=== PATIENT | male | born 1960 | race Caucasian/White ===

== ENCOUNTER → 2018-01-11 12:39 | Outpatient (CLI) | payer MEDICARE, SELFPAY ==
[2018-01-11 13:04] LABS: Hemoglobin 15.9 g/dL (13.5-17.5); Mean Corpuscular HGB Conc 33.2 % (30-36); Mean Corpuscular Hemoglobin 28.8 PG (26-34); Mean Corpuscular Volume 86.9 fL (80-100); Platelet Count 151 X10^3/uL (150-400); Red Blood Cell Count 5.52 X10^6/uL (4.5-5.9); Red Cell Distribution Width 15.2 % (11.6-14.8); White Blood Cell Count 7.2 X10^3/uL (4.5-11.0)
[2018-01-11 13:26] LABS: BUN Creatinine Ratio 11.1 (6-22); Blood Urea Nitrogen 10 mg/dL (9-20); Calcium 9.4 mg/dL (8.4-10.2); Carbon Dioxide 25 mmol/L (22-32); Chloride 106 mmol/L (98-107); Estimated Glomerular Filt Rate > 60.0 mL/min (>60); Glucose 99 mg/dL (70-100); HEMOLYSIS < 15 (0-50); Potassium 4.5 mmol/L (3.4-5.1); Sodium 142 mmol/L (137-145)
== END ==
PROVIDERS: Family Provider Family Medicine; PCP Family Medicine; Visit Provider Orthopaedic Surgery
DX: Z01.818 Encounter for other preprocedural examination (principal)
CPT/HCPCS: 36415; 80048; 85027

== ENCOUNTER 2018-02-08 06:19 | Inpatient (IN) | payer MEDICARE, SELFPAY ==
[2018-01-20 12:30] VITALS: BMI 49.8
[2018-02-08] VITALS (16 sets, daily range): BP systolic 90–146; BP diastolic 43–108; PULSE 92–123; RESP 10–21; TEMP 35.8–37.2; O2SAT 92–100; BMI 49.8
--- NOTE | 2018-02-08 07:30 | PM.PREOP ---
Pre-operative Note Interval Note Pre-op Check: History & Physical Reviewed by Physician and Exam Performed
--- NOTE | 2018-02-08 07:36 | P.OP_ITS ---
Operative Date/Time/Diagnoses Date of procedure: 02/08/18 Time of procedure: 12:11 Pre-op diagnosis: Lumbar stenosis Lumbar spondylolisthesis History of previous lumbar fusion Morbid obesity Post-op diagnosis: same Procedure & Clinicians Procedure: L2-3 anterior fusion with cage L2-3 posterior fusion with screws Iliac crest bone graft L2-3 laminectomy Use of microscope Placement of epidural catheter Same procedure as scheduled: Yes Indications: [age] year old male with intractable pain from stenosis. They had failed conservative management and requested operative intervention. Risks and benefits of surgery were discussed and appropriate consents were obtained. Surgeon: Og Ball Computer Systems Security Administrator: Tamara Escalante Anesthesia Type: General Operative Notes Findings: none Closure Type: primary Specimen(s): none sent Implants & Drains: Nuvasive Reline screws Nuvasive XLIF cage Applied: catheter and drain(s) Estimated Blood Loss (mL): 50 Procedure in detail: Patient was brought to the operating room and intubated on the table. Time-out was performed. They were then rolled over to the lateral decubitus position with the [id number]. The table was bent and they were taped down in the correct position. X-rays were taken to confirm a true AP and lateral. Preoperative antibiotics were given. The left flank was prepped and draped in standard sterile fashion. Using fluoroscopy, a 3 cm incision was made above the iliac crest. We bluntly dissected down with Metzenbaum scissors and split the 3 abdominal muscle layers. We dissected out the retroperitoneal space and using finger guidance, brought our 1st dilator down to the psoas muscle. Using neuromonitoring and fluoroscopy, we placed it through the psoas onto the L2-3 disc space in an anterior position and gradually pulled the dilator posteriorly along the disc space. We placed our guidewire and measured our depth for the retractor. We then dilated with the next 2 dilators and then placed our retractor over the dilators. Position was confirmed with fluoroscopy and the retractor was locked down to the bar. We opened up the retractor and checked with neuro monitoring. We then placed the nate and again checked with neuro monitoring. The retractor was opened further and the ALL retractor was placed. An annulotomy was performed. We then performed a complete diskectomy with ring curette, pituitary, box osteotome. A Aguero was advanced across the disc space under fluoroscopy to release the lateral annulus on the opposite side. We then used sequentially larger trials and confirmed under fluoroscopy. An XLIF cage was packed with Osteocell bone graft and impacted into the L2-3 disc space with fluoroscopy for the anterior fusion at this level. The wound was irrigated. The retractor was closed down. The nate was removed. We carefully removed the retractor with direct visualization to make sure there was no neurovascular or abdominal injury. Final x-rays were taken. The muscle fascia was closed, superficial tissue was closed. The skin was closed. Sterile dressing was placed. The patient was then rolled over on the well-padded prone position on the Antelmo table. Using fluoroscopy for localization, a 8 cm incision was made in the midline utilizing part of his previous incision. We dissected down the left sided paraspinal muscles to expose the lamina and out over the facet to the transverse process. We exposed the top of his previous instrumentation so we could see the L3 screw as well as the wali below this. We used a bur to clear out some of the bone mass around the wali so that we would be able to get a connector to it. We also used the bur to prep the L2 and L3 transverse processes. We then began placing our screw. A bur was used to decorticate the junction of the facet and transverse process. We then advanced a gear shifter down the pedicle using neuro monitoring. We checked with the ball probe to confirm a floor and 4 greene on the pedicle. We then tapped also with neuro monitoring. We checked again with the ball probe and then placed our left L2 Reline screw with neuro monitoring. We then placed byron connectors on his old wali and connected this to a wali up to his L2 screw. The set screws were then locked down and final xrays taken. We then brought in the microscope. A laminectomy was performed at L2-3 with a bur and Kerrison rongeurs. He had a very large facet cyst tracking across the midline. We were finally able to get this freed up and removed. We carefully depress the dura to reach to the opposite side and decompress the entire central canal. We cleared out the neural foramen. In the end the ball probe could be placed cephalad and caudally across to the opposite side in the foramen and everything was opened. The wound was copiously irrigated. A small stab incision was made over the PSIS and a Jamshidi needle was placed into the iliac crest and several mL of bone marrow was aspirated. This was mixed with our locally harvested bone graft as well as the remaining Osteocell and placed in the posterolateral gutter for fusion at L2-3. An epidural catheter was primed with 4mL of 0.5% bupivacaine, 100 mcg fentanyl, 4 mg Duramorph, 1 mg Stadol. The dura was depressed under the cephalad lamina with a ball probe and the epidural catheter was gently advanced 6 cm cephalad. The fascia was then closed. The epidural was then injected without resistance. The catheter was pulled and we closed more over the fascia. Vancomycin powder was placed in the wound. The superficial and skin were closed. Sterile dressing was placed. The patient was then rolled over, extubated, brought to the recovery room with no complications. Please note the patient was morbidly obese with a BMI of 50. This greatly increased the difficulty and amount of time required for this procedure. We used extremely long XLIF retractors which limited the mobility for his decompression. The posterior section was extremely deep through his adipose tissue which required larger exposures as well as was much more time consuming digging through the tissue and exposing and doing our work. The difficulty medical modifier will be included with this surgery. Complications: none Condition: stable Disposition: PACU Plan for aftercare: Inpatient. Up with physical therapy.
[2018-02-08] MEDS: LACTATED RINGERS 1,000 ML 42 ML IV ×3 (07:50→11:00)
--- NOTE | 2018-02-08 08:00 | DI.RAD.S_ITS ---
PROCEDURE: XR LUMBAR SPINE 2-3V INDICATIONS: L3-4 XLIF TECHNIQUE: 2 views of the lumbar spine were acquired. [facility]B 2 [facility] 3VW, 02/08/2017, 10:54. FINDINGS: Bones: Intraoperative AP and lateral images showing presence of discs spacers and posterior fixation in addition/revision to previous postsurgical changes. Soft tissues: Overlying bowel gas pattern is normal. No suspicious soft tissue calcifications. IMPRESSION: Intraoperative lumbar discectomy and fusion Dictated by: Jemal Wilkins M.D. on 02/09/2018 at 12:32 Approved by: Jemal Wilkins M.D. on 02/09/2018 at 12:36
[2018-02-08] MEDS: CLINDAMYCIN 900 MG/50 ML PIGGYBACK 50 MG IV ×2 (08:28→16:27)
--- NOTE | 2018-02-08 09:07 | SUR.OPER ---
Addendum entered by Jolene Walker R.N. 02/08/18 09:11: Prone on spine table, head in foam head support, padded chest and pelvic supports, gel pad at knees, lower legs supported by pillows; nipples, genitalia and toes free of pressure, arms secured on foam padded arm boards at <90 degrees abduction. Tape over blanket at thigh secured to table. Original Note: Right lateral on padded OR table. Head on pillow, gel axillary roll, pillowesx2 to support left arm. Legs flexed, pillows between legs, gel pad under down leg and ankle. Multiple passes of 3 inch cloth tape across shoulder, hip, upper and lower legs to secure patient on OR table.
[2018-02-08] MEDS: THROMBIN (BOVINE) 5,000 UNIT VIAL 5000 UNIT TOP (10:05)
[2018-02-08] MEDS: VANCOMYCIN 1,000 MG VIAL 1000 MG TOP (10:05)
[2018-02-08] MEDS: SODIUM CHLORIDE 0.9% 1,000 ML, GENTAMICIN 80 MG IRR ×2 (10:06→11:36)
[2018-02-08] MEDS: BUPIVACAINE 0.5% (PF) 4 ML, MORPHINE-PF 4 MG, BUTORPHANOL 1 MG, fentaNYL 100 MCG INJ (10:06)
[2018-02-08] MEDS: fentaNYL 100 MCG/2 ML INJ 50 MCG IV ×2 (12:48→12:58)
[2018-02-08] MEDS: LORazepam 2 MG/ML SYRINGE 1 MG IV (12:55)
[2018-02-08] MEDS: ACETAMINOPHEN IV 1,000 MG/100 ML VIAL 400 MG IV (13:07)
[2018-02-08] MEDS: HYDROMORPHONE 2 MG INJ 0.5 MG IV ×2 (13:10→13:22)
[2018-02-08] MEDS: hydrOXYzine 50 MG/ML INJ 25 MG IM (13:19)
[2018-02-08] MEDS: HYDROMORPHONE 1 MG INJ 0.5 MG IV ×3 (14:40→21:18)
[2018-02-08] MEDS: HYDROCODONE/ACET 5/325 TABLET 2 TAB PO ×3 (14:57→21:40)
[2018-02-08] MEDS: LACTATED RINGERS 1,000 ML 125 ML IV (15:00)
--- NOTE | 2018-02-08 15:46 | PC.NURSE ---
Post op: Late entry Arrived to room 218 approx 1430. Dressings to mid low back and L hip C/D/I. Hemovac and BLAYNE drains in place and WNL. Braga to gravity, urine clear yellow. SCD's to bilateral feet. IVF per orders, site in L AC WNL. C/O 04/11 back pain- medicated with 0.5 mg IV Dilaudid + 2 tabs Clarinda. Tolerating PO's without N/V. Denies paresthesias. SpO2 on RA 98% awake- cont pulse ox in place, personal CPAP at bedside and ready to use PRN. Oriented to room and call light, encouraged to make needs known. Alarm on.
[2018-02-08] MEDS: DOCUSATE 100 MG CAPSULE PO (21:14)
[2018-02-08] MEDS: METOPROLOL 50 MG TABLET PO (21:14)
[2018-02-08] MEDS: SENNOSIDES 8.6 MG TABLET 17.2 MG PO (21:14)
[2018-02-08] MEDS: GABAPENTIN 300 MG CAPSULE PO (21:14)
[2018-02-08] MEDS: hydrOXYzine pamoate 25 MG CAPSULE PO (21:15)
[2018-02-08] MEDS: HYDROCODONE/ACET 5/325 TABLET 1 TAB PO (21:35)
[2018-02-09] VITALS (7 sets, daily range): BP systolic 108–139; BP diastolic 72–84; PULSE 94–119; RESP 18–20; TEMP 36.3–37.4; O2SAT 96–99
[2018-02-09] MEDS: CELECOXIB 200 MG CAPSULE PO ×3 (00:46→21:09)
[2018-02-09] MEDS: HYDROMORPHONE 0.5 MG INJ IV ×7 (00:49→21:16)
[2018-02-09] MEDS: LACTATED RINGERS 1,000 ML 125 ML IV (00:51)
[2018-02-09] MEDS: HYDROCODONE/ACET 5/325 TABLET 2 TAB PO (01:26)
[2018-02-09] MEDS: hydrOXYzine pamoate 25 MG CAPSULE PO ×4 (01:27→21:17)
[2018-02-09] MEDS: CLINDAMYCIN 900 MG/50 ML PIGGYBACK 50 MG IV (01:27)
[2018-02-09 05:47] LABS: Hematocrit 39.7 % (41-53); Hemoglobin 13.4 g/dL (13.5-17.5)
--- NOTE | 2018-02-09 08:13 | PM.PNPO.1 ---
Subjective Date Patient Seen: 02/09/18 Time Patient Seen: 08:13 Interval history: Pain is about a 7/10 currently. All in the back. Legs are fine Exam Vital Signs (past 8 hours): - 02/09/18 04:30 02/09/18 07:59 Temperature 98.1 F 97.4 F L Pulse Rate 108 H 110 H Respiratory Rate 18 20 Blood Pressure 108/72 122/84 H Pulse Oximetry 96 99 Oxygen Delivery Method Room Air Oxygen Flow Rate 6 Const Orientation: alert and oriented x3 Back/Spine/Pelvis Other: Dressings clean dry intact. 5/5 motor both lower extremities Objective Labs Result Diagrams: 02/09/18 05:31 Labs: Laboratory Results - last 24 hr 02/09/18 05:31 Hgb 13.4 L Hct 39.7 L Assessment & Plan Post-op Postoperative Procedures Operation Date: 02/08/18 07:45 Actual Procedures Side Surgeon p L2-3 Ant/Post Fusion w/Bone Graft(XLIF) & Laminectomy; Partial Removal of Old Hardware Og Ball MD he is as expected after this big fusion and laminectomy. We will get him up and mobilize with physical therapy. Anticipate 2 more days in the hospital. He normally takes high-dose aspirin for his atrial fibrillation as he could not afford his prescribed routine medications. Evidently pharmacy did not feel comfortable with this dosing and we will put him on just a regular aspirin. Time Spent With Patient less than 15 minutes Quality VTE Deep Vein Thrombosis/Pulmonary Embolism Present on Admission: No
[2018-02-09] MEDS: METOPROLOL 50 MG TABLET PO ×2 (08:17→21:09)
[2018-02-09] MEDS: MULTIVITAMIN 1 TABLET 1 TAB PO (08:17)
[2018-02-09] MEDS: DOCUSATE 100 MG CAPSULE PO ×2 (08:18→21:09)
[2018-02-09] MEDS: OXYCODONE IR 5 MG TABLET 10 MG PO ×3 (09:24→15:49)
[2018-02-09] MEDS: ASPIRIN EC 325 MG TABLET PO ×2 (09:25→21:09)
--- NOTE | 2018-02-09 10:50 | PT.IIE ---
Current Diagnoses Spondylolisthesis, lumbar region (02/08/18) Spinal stenosis, lumbar region with neurogenic claudication (02/08/18) Arthrodesis status (02/08/18) Surgery Performed Operation Date: 02/08/18 07:45 Actual Procedures p L2-3 Ant/Post Fusion w/Bone Graft(XLIF) & Laminectomy; Partial Removal of Old Hardware - Og Ball MD Surgical History (Last Updated 01/20/18 @ 13:22 by Cynthia Liriano RN) History of back surgery (Acute) History of bilateral carpal tunnel release (Acute) Hx of hand surgery (Acute) Hx of repair of right rotator cuff (Acute) Status post rotator cuff repair Medical History (Last Updated 01/20/18 @ 13:22 by Cynthia Liriano RN) Anxiety (Acute) Arthritis (Acute) Asthma (Acute) COPD (chronic obstructive pulmonary disease) (Acute) Gout (Acute) HTN (hypertension) (Acute) Kidney stones (Acute) Numbness and tingling of both legs (Acute) Sepsis (Acute) Sleep apnea with use of continuous positive airway pressure (CPAP) (Acute) Physical Therapy Inpatient Evaluation/Re-Eval M1 PT/OT-IP Prior Functional Status Start: 02/08/18 15:03 Freq: NEEDED Status: Active Protocol: Document 02/09/18 10:50 MDD (Rec: 02/09/18 12:16 MDD [id number]) Medical Review Prior Functional Status Medical History Reviewed Yes Mobility and Gait modified independent with gait using walking sticks. independent with all ADL's. 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 Social History Household Members family none Living Arrangements House Number of Floors (Floors) One Floor Number of Stairs To Enter/Railing? 6 steps to enter, railing on R going up. Also has access via a wheelchair ramp to a separate entrance. Home Environment Standard Height Toilet Walk in Shower Tub/Shower Ramp Home Equipment Four Wheel Walker Shower Seat without Backrest Employment Status Retired Additional Social History Comment Charles works as a CHEMISTRY TECHNICIAN, will be available to assist in the home. He plans on staying with sister and brother in-law initially upon discharge. M2 PT-IP Current Condition Start: 02/08/18 15:03 Freq: NEEDED Status: Active Protocol: Document 02/09/18 10:50 MDD (Rec: 02/09/18 12:16 MDD [id number]) Physical Therapy Current Condition Current Condition Evaluation Date 02/09/18 Treatment Diagnosis impaired mobility, impaired gait, status post L2-3 anterior/posterior fusio Onset Date 02/08/18 Precautions Lumbar Precautions Log Roll No Twisting Limit Bending Lifting Restriction of 10 lbs Gait Belt above Incisional Area Weight Bearing Status Weight Bearing Status Full Weight Bearing M3 PT-IP Subjective Start: 02/08/18 15:03 Freq: NEEDED Status: Active Protocol: Document 02/09/18 10:50 MDD (Rec: 02/09/18 12:16 MDD [id number]) Subjective Physical Therapy Visit Type Type Initial Evaluation Visit Start Time 10:00 Visit Stop Time 10:50 Total Visit Minutes 50 Number of IP/MOSAIC TECHNICIAN Visits 0 Physical Therapy Visit Comments Patient Comments Pt reporting improved pain after mobility. Motivated to participate with PT and get out of bed. Therapy Pain Assessment Pain When Pain Assessed At Rest Pain Present Pain Present Pain Reported Location Lower Back Intensity 7 Scale Used Numeric (1 - 10) Description Aching Pain Behaviors Guarding Pain Management Techniques Timing of Activity with Medications M4 PT-IP Mobility and Gait Start: 02/08/18 15:03 Freq: NEEDED Status: Active Protocol: Document 02/09/18 10:50 MDD (Rec: 02/09/18 12:16 MDD [id number]) PT-Bed Mobility Assessment Rolling Type of Rolling Log Rolling Roll to Left Level of Assist Independent Supine to Sit Supine to Sit Minimal Assistance Scooting Scooting to Edge of Bed Independent PT-Transfer Assessment Sit to and From Stand Sit to and from Stand Contact Guard Assistance Equipment Transfer Assistive Device Gait Belt Front Wheeled Walker Orthotic/Prosthetic Devices or Brace: No Transfers Transfer Destination Chair Toilet Transfer Ability Level of Assist Contact Guard Assistance Gait Assessment Gait Gait Assistance Required: Contact Guard Assist Distance (Feet) (feet) 35 Able to Maintain Weight Bearing Status Yes During Gait Assistive Devices Assistive Device Gait Belt Front Wheeled Walker Orthotic/Prosthetic Devices or Brace: No Gait Deviations General Gait Pattern Antalgic Wide Based Gait Comments Gait Comments Pt ambulates slowly with slight forward trunk lean PT-Balance Assessment Sitting Balance and Reactions Static Sitting Balance Ability Normal Dynamic Sitting Balance Ability Good Standing Balance and Reactions Static Standing Balance Ability Normal Balance Tests Romberg 30 seconds, nml M5 PT-IP Objective Assessments Start: 02/08/18 15:03 Freq: NEEDED Status: Active Protocol: Document 02/09/18 10:50 MDD (Rec: 02/09/18 12:16 MDD [id number]) Orientation Orientation/Cognition Level of Alertness Alert Orientation Name Day of Week Language Function Ability No Deficits Noted Safety Awareness Understands Safety Issues Memory Description No Deficits Noted Gross Range of Motion Upper Extremity ROM Assessment Within Functional Limits Lower Extremity ROM Assessment Within Functional Limits Strength Lower Extremity Strength Assessment Within Functional Limits Coordination Assessment Gross Coordination Gross Coordination WNL Sensation Assessment Sensation Gross Sensation WNL Light Touch Intact M6 PT-IP Treatment Start: 02/08/18 15:03 Freq: NEEDED Status: Active Protocol: Document 02/09/18 10:50 MDD (Rec: 02/09/18 12:16 MDD [id number]) Physical Therapy Treatment Exercises Exercises Ankle Pumps Seated Knee Flexion/Extension Education Education Provided Precautions Post-Op Packet Safety Other Treatments Other Treatment Performed additional exercise, seated marching M7 PT-IP Assessment and Plan Start: 02/08/18 15:03 Freq: NEEDED Status: Active Protocol: Document 02/09/18 10:50 MDD (Rec: 02/09/18 12:16 MDD [id number]) PT Summary Assessment and Plan Potential Rehabilitation Potential Excellent Status of Condition at Evaluation Stable Summary Impairments Pain ROM Bed Mobility Gait Progress Towards Goals Progressing Toward Goals Goals Bed Mobility Goal Independent Transfer Goal Independent Gait Goal Standby Assistance Front Wheel Walker Gait Distance Minimum of 50 feet with front wheeled walker Other Goals Ability to ascend/descend 6 steps with R hand railing going up. Days to Meet Goals 3 Frequency of Treatment Frequency Of Treatment Twice a Day Treatment Plan Physical Therapy Treatment Plan Bed Mobility Training Transfer Training Gait Training Therapeutic Exercise Post Op Education Discharge Planning Recommendations To Nursing Amount of Assist Needed 1 Person Assist Discharge Recommendations PT Discharge Recommendations Home with Assistance
--- NOTE | 2018-02-09 13:22 | CM.DANOTE ---
Patient is a 57 year old male who was admitted on 02/08/18 for XLIF. Pt has MCR for insurance and his PCP is Dr. Cui. EMR was reviewed. Per MD, likely another 2 days and mobilize with PT. Per PT, currently recommending likely safe d/c to sister's house for additional assist and outpt PT. 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 Pt drives and denies any hx of HH. Sister states that they plan to have the pt stay with them at discharge for assist for as long as needed. They do not anticipate any SW needs. Plan: SW to follow for further PT towards likely d/c to sister's house when medically stable. COLLEEN Ambriz Discharge Planning/Care Management CM Discharge Assessment Start: 02/09/18 13:20 Freq: Status: Active Protocol: Document 02/09/18 13:20 BF (Rec: 02/09/18 13:22 BF [id number]) Discharge Planning Assessment Assigned Instrument Operator OFFICE MACHINE INSTALLER History Provided By Family Member Significant Other Has Patient been admitted in last 30 No days? Is this patient on Medicare? Yes Is the admit diagnosis the same? Yes Comment XLIF Prior Living Arrangements House Household Members family none Type of transporation used prior to Drives own vehicle admit Independent with ADL's Yes Is patient alert and oriented? Yes Needs Assistance With Managing Medications Caregiver for Another No DME Already Rented / Owned Oxygen Referrals Initiated None needed Comment Patient has local supportive sister and sig other who can assist at d/c Discharge Plan Home Transportation Arrangement Sister can provide transport at d/c Review Status In Process Next Review Type Discharge Review
--- NOTE | 2018-02-09 15:20 | PT.IPTN ---
Current Diagnoses Spondylolisthesis, lumbar region (02/08/18) Spinal stenosis, lumbar region with neurogenic claudication (02/08/18) Arthrodesis status (02/08/18) Surgery Performed Operation Date: 02/08/18 07:45 Actual Procedures p L2-3 Ant/Post Fusion w/Bone Graft(XLIF) & Laminectomy; Partial Removal of Old Hardware - Og Ball MD Physical Therapy Treatment Note M2 PT-IP Current Condition Start: 02/08/18 15:03 Freq: NEEDED Status: Active Protocol: Document 02/09/18 10:50 MDD (Rec: 02/09/18 12:16 MDD [id number]) Physical Therapy Current Condition Current Condition Evaluation Date 02/09/18 Treatment Diagnosis impaired mobility, impaired gait, status post L2-3 anterior/posterior fusio Onset Date 02/08/18 Precautions Lumbar Precautions Log Roll No Twisting Limit Bending Lifting Restriction of 10 lbs Gait Belt above Incisional Area Weight Bearing Status Weight Bearing Status Full Weight Bearing M3 PT-IP Subjective Start: 02/08/18 15:03 Freq: NEEDED Status: Active Protocol: Document 02/09/18 16:47 MDD (Rec: 02/09/18 16:58 MDD [id number]) Subjective Physical Therapy Visit Type Type Treatment Note Visit Start Time 14:53 Visit Stop Time 15:20 Total Visit Minutes 27 Number of SANITARY LANDFILL OPERATOR Visits 0 Physical Therapy Visit Comments Patient Comments Pt reports increased pain after PT session this am. Short Term Goals improve mobility to remove catheter Therapy Pain Assessment Pain When Pain Assessed At Rest Pain Present Pain Present Pain Reported Location Lower Back Intensity 7 Scale Used Numeric (1 - 10) Description Aching Pain Management Techniques Apply Cold M4 PT-IP Mobility and Gait Start: 02/08/18 15:03 Freq: NEEDED Status: Active Protocol: Document 02/09/18 16:47 MDD (Rec: 02/09/18 16:58 MDD [id number]) PT-Bed Mobility Assessment Rolling Type of Rolling Log Rolling Roll to Left Level of Assist Standby Assistance Supine to Sit Supine to Sit Standby Assistance Sit to Supine Sit to Supine Standby Assistance Scooting Scooting to Edge of Bed Independent PT-Transfer Assessment Sit to and From Stand Sit to and from Stand Standby Assistance Contact Guard Assistance Equipment Transfer Assistive Device Front Wheeled Walker Transfers Transfer Destination Bed Chair Transfer Ability Level of Assist Standby Assistance Gait Assessment Gait Gait Assistance Required: Standby Assistance Distance (Feet) (feet) 150 Able to Maintain Weight Bearing Status Yes During Gait Assistive Devices Assistive Device Gait Belt Front Wheeled Walker Orthotic/Prosthetic Devices or Brace: No Gait Deviations General Gait Pattern Antalgic Comments Gait Comments slow and guarded M5 PT-IP Objective Assessments Start: 02/08/18 15:03 Freq: NEEDED Status: Active Protocol: Document 02/09/18 16:47 MDD (Rec: 02/09/18 16:58 [facility] [id number]) Orientation Orientation/Cognition Level of Alertness Alert M6 PT-IP Treatment Start: 02/08/18 15:03 Freq: NEEDED Status: Active Protocol: Document 02/09/18 16:47 MDD (Rec: 02/09/18 16:58 MDD [id number]) Physical Therapy Treatment Other Treatments Other Treatment Performed Practice with bed mobility, sit <> supine with head of bed elevated to 30 degrees, use of bed rail as needed. Provided education on transfer safety with sequencing and using armrests of chair rather than walker. M7 PT-IP Assessment and Plan Start: 02/08/18 15:03 Freq: NEEDED Status: Active Protocol: Document 02/09/18 16:47 MDD (Rec: 02/09/18 16:58 MDD [id number]) PT Summary Assessment and Plan Potential Rehabilitation Potential Excellent Status of Condition at Evaluation Stable Summary Impairments Pain ROM Bed Mobility Transfers Gait Activity Tolerance Progress Towards Goals Progressing Toward Goals Assessment Summary Pt demo's improved transfers with standby assist only this afternoon. Improved endurance and distance with gait up to 150 feet. Goals Bed Mobility Goal Independent Transfer Goal Independent Gait Goal Standby Assistance Gait Distance Minimum of 50 feet with front wheeled walker Other Goals Ability to ascend/descend 6 steps with R hand railing going up. Days to Meet Goals 3 Frequency of Treatment Frequency Of Treatment Twice a Day Treatment Plan Physical Therapy Treatment Plan Bed Mobility Training Transfer Training Gait Training Therapeutic Exercise Post Op Education Discharge Planning Recommendations To Nursing Amount of Assist Needed 1 Person Assist Discharge Recommendations PT Discharge Recommendations Home with Assistance
--- NOTE | 2018-02-09 17:10 | OT.IP.TRT ---
Current Diagnoses Spondylolisthesis, lumbar region (02/08/18) Spinal stenosis, lumbar region with neurogenic claudication (02/08/18) Arthrodesis status (02/08/18) Surgery Performed Operation Date: 02/08/18 07:45 Actual Procedures p L2-3 Ant/Post Fusion w/Bone Graft(XLIF) & Laminectomy; Partial Removal of Old Hardware - Og Ball MD Occupational Therapy Treatment Note M3 OT- IP Subjective and Pain Start: 02/09/18 17:08 Freq: Status: Active Protocol: Document 02/09/18 17:09 GERI (Rec: 02/09/18 17:10 [email or web address] [id number]) OT- Subjective Occupational Therapy Visit Type Type Administrative Note Visit Start Time 15:00 Notes OT referral received. Will initiate evaluation in AM.
[2018-02-09] MEDS: OXYCODONE IR 5 MG TABLET PO (19:09)
[2018-02-09] MEDS: SENNOSIDES 8.6 MG TABLET 17.2 MG PO (21:09)
[2018-02-09] MEDS: GABAPENTIN 300 MG CAPSULE PO (21:09)
[2018-02-10] MEDS: OXYCODONE IR 5 MG TABLET 10 MG PO ×7 (00:12→20:49)
[2018-02-10 00:17] VITALS: BP 95/58; PULSE 106; RESP 16; TEMP 36.7; O2SAT 96
--- NOTE | 2018-02-10 01:34 | PC.NURSE ---
Addendum entered by Reina Hatch R.N. 02/10/18 06:21: Catheter d'cd per protocol. Instructed in sx/prevention of UTI. Up to bathroom attempting to have BM Original Note: Addendum entered by Reina Hatch R.N. 02/10/18 06:11: Medicated with Oxycodone for complaint of 6/10 back pain. Original Note: Addendum entered by Reina Hatch R.N. 02/10/18 05:11: Still complaining of stomach cramping. Was given Maalox at 0431 and is waiting for that to work. States back pain is still 6/10 so medicated with Vistaril. Original Note: Addendum entered by Reina Hatch R.N. 02/10/18 03:14: Complains of pain in back/legs and stomach (gas). Assisted out of bed with 2 assist and then ambulated in pascual with walker and SBA, then medicated with Oxycodone and now sitting up in chair. Original Note: Patient is alert and oriented. Breath sounds diminished but CTA with RA sat of 96%; is using home CPAP for sleep. HRR but tachy at 100 bpm. Denies nausea. BT hypoactive but is passing flatus. Indwelling catheter is patent and plan is to remove in the a.m.; patient is agreeable. Hemovac is intact and compressed. Dressings to back and left hip are CDI. Also has a BLAYNE drain. Needs some assist to reposition q2h but does assist. IV site accidentally pulled out per patient; not restarted at this time per patient request and will try to manage pain with po pain meds but is aware if he needs IV pain meds that IV will need to be restarted. Complains of 6/10 back pain so medicated with Oxycodone. Refuses to wear SCD's. Fall risk score is moderate; bed alarm on for night safety.
[2018-02-10] MEDS: MAG HYDROX/ALUM/SIMETH 30 ML UDC PO ×2 (04:31→13:07)
[2018-02-10] MEDS: hydrOXYzine pamoate 25 MG CAPSULE PO ×2 (05:10→17:18)
[2018-02-10 06:15] VITALS: BP 123/77; PULSE 102; RESP 16; TEMP 36.7; O2SAT 95
[2018-02-10 08:00] VITALS: BP 143/85; PULSE 94; RESP 17; TEMP 36.9; O2SAT 99
[2018-02-10] MEDS: MAGNESIUM HYDROXIDE 30 ML UDC PO (09:03)
[2018-02-10] MEDS: CELECOXIB 200 MG CAPSULE PO ×2 (09:04→20:49)
[2018-02-10] MEDS: ASPIRIN EC 325 MG TABLET PO ×2 (09:04→20:49)
[2018-02-10] MEDS: DOCUSATE 100 MG CAPSULE PO ×2 (09:04→20:49)
[2018-02-10] MEDS: METOPROLOL 50 MG TABLET PO ×2 (09:04→20:49)
[2018-02-10] MEDS: MULTIVITAMIN 1 TABLET 1 TAB PO (09:04)
--- NOTE | 2018-02-10 09:39 | PM.PNPO.1 ---
Subjective Date Patient Seen: 02/10/18 Time Patient Seen: 09:31 Interval history: Patient seen bedside s/p L2-3 anterior and posterior fusion with bone graft (XLIF) and laminectomy with partial removal of old hardware. Patient is postop day 2. He is doing well, pain is controlled with medication. He does state pain with the movement but would like to go home tomorrow. He denies any numbness tingling or calf pain. He does complain of bloating and stomach cramps. He has not had a bowel movement post-op. Exam Vital Signs (past 8 hours): - 02/10/18 06:15 02/10/18 08:00 Temperature 98.0 F 98.4 F Pulse Rate 102 H 94 H Respiratory Rate 16 17 Blood Pressure 123/77 H 143/85 H Pulse Oximetry 95 99 Oxygen Delivery Method Room Air,CPAP Oxygen Flow Rate 0 Narrative Exam Narrative: Patient is a well-developed well-nourished in no acute distress. Patient is oriented x3. Examination of the spleen dressing is clean dry and intact with minimal drainage in the Hemovac drain. He has palpable pulses in all extremities calves are soft and compressible, and sensation is intact bilaterally in lower extremities. He has full range of motion at the knee and ankle. Objective Labs Result Diagrams: 02/09/18 05:31 Assessment & Plan Post-op (1) Spondylisthesis: Current Visit: Yes Status: Acute Postoperative Procedures Operation Date: 02/08/18 07:45 Actual Procedures Side Surgeon p L2-3 Ant/Post Fusion w/Bone Graft(XLIF) & Laminectomy; Partial Removal of Old Hardware Og Ball MD Patient seen bedside status post the above procedure. He is postop day 2. Continue with physical therapy and pain control. Continue VTE prophylaxis. Possible discharge home tomorrow. Will add Gas-X to help with bloating as well as recommend laxatives to induce a BM. All questions answered at the time of exam. Time Spent With Patient less than 15 minutes Quality VTE Deep Vein Thrombosis/Pulmonary Embolism Present on Admission: No
--- NOTE | 2018-02-10 10:51 | PT.IPTN ---
Current Diagnoses Spondylolisthesis, site unspecified (02/08/18) Spondylolisthesis, lumbar region (02/08/18) Spinal stenosis, lumbar region with neurogenic claudication (02/08/18) Arthrodesis status (02/08/18) Surgery Performed Operation Date: 02/08/18 07:45 Actual Procedures p L2-3 Ant/Post Fusion w/Bone Graft(XLIF) & Laminectomy; Partial Removal of Old Hardware - Og Ball MD Physical Therapy Treatment Note M2 PT-IP Current Condition Start: 02/08/18 15:03 Freq: NEEDED Status: Active Protocol: Document 02/09/18 10:50 MDD (Rec: 02/09/18 12:16 MDD [id number]) Physical Therapy Current Condition Current Condition Evaluation Date 02/09/18 Treatment Diagnosis impaired mobility, impaired gait, status post L2-3 anterior/posterior fusio Onset Date 02/08/18 Precautions Lumbar Precautions Log Roll No Twisting Limit Bending Lifting Restriction of 10 lbs Gait Belt above Incisional Area Weight Bearing Status Weight Bearing Status Full Weight Bearing M3 PT-IP Subjective Start: 02/08/18 15:03 Freq: NEEDED Status: Active Protocol: Document 02/10/18 12:27 MDD (Rec: 02/10/18 12:37 MDD [email or web address]) Subjective Physical Therapy Visit Type Type Treatment Note Visit Start Time 10:24 Visit Stop Time 10:51 Total Visit Minutes 27 Number of PRODUCT DEVELOPMENT ACTUARY Visits 0 Physical Therapy Visit Comments Patient Comments Feeling a bit better this morning, reports he was up moving around at 3 am this morning. Short Term Goals stair training Therapy Pain Assessment Pain When Pain Assessed At Rest Pain Present Pain Present Pain Reported Location Lower Back Intensity 6 Scale Used Numeric (1 - 10) Pain Management Techniques Timing of Activity with Medications M4 PT-IP Mobility and Gait Start: 02/08/18 15:03 Freq: NEEDED Status: Active Protocol: Document 02/10/18 12:27 MDD (Rec: 02/10/18 12:37 MDD [id number]) PT-Bed Mobility Assessment Scooting Scooting to Edge of Bed Independent PT-Transfer Assessment Sit to and From Stand Sit to and from Stand Standby Assistance Contact Guard Assistance Equipment Transfer Assistive Device Front Wheeled Walker Orthotic/Prosthetic Devices or Brace: No Transfers Transfer Destination Chair Wheelchair Transfer Ability Level of Assist Standby Assistance Comments Mobility Comments Pt requires some cuing for slower descent for transfers, continues to have some difficulty with sit to stand from lower surfaces. Gait Assessment Gait Gait Assistance Required: Standby Assistance Distance (Feet) (feet) 75 Able to Maintain Weight Bearing Status Yes During Gait Assistive Devices Assistive Device Gait Belt Front Wheeled Walker Gait Deviations General Gait Pattern Within Normal Limits Antalgic Comments Gait Comments reliance on upper extremities, requires cues for upright posture and placing less pressure on the walker Stair Climbing Assessment Evaluation Level of Assist On Stairs Contact Guard Assistance Devices Stair Climbing Assistive Devices Left Railing Right Railing Technique/Endurance Stair Climbing Direction Ascend and Descend Stair Climbing Technique Step to Step Number of Steps Climbed 3 Query Text: Stair Climbing Set # Repetitions (reps) 2 Comments Stair Climbing Comments Requires use of B railings today PT-Balance Assessment Sitting Balance and Reactions Static Sitting Balance Ability Normal M5 PT-IP Objective Assessments Start: 02/08/18 15:03 Freq: NEEDED Status: Active Protocol: Document 02/09/18 16:47 MDD (Rec: 02/09/18 16:58 MDD [id number]) Orientation Orientation/Cognition Level of Alertness Alert M6 PT-IP Treatment Start: 02/08/18 15:03 Freq: NEEDED Status: Active Protocol: Document 02/10/18 12:27 MDD (Rec: 02/10/18 12:37 MDD [email or web address]) Physical Therapy Treatment Other Treatments Other Treatment Performed standing balance exercises including balance without UE support x 30 seconds, small weight shifts without UE support x 20, marching in place x 20 (required handhold assist for safety). M7 PT-IP Assessment and Plan Start: 02/08/18 15:03 Freq: NEEDED Status: Active Protocol: Document 02/10/18 12:27 MDD (Rec: 02/10/18 12:37 MDD [id number]) PT Summary Assessment and Plan Potential Rehabilitation Potential Excellent Status of Condition at Evaluation Stable Summary Impairments Pain ROM Bed Mobility Transfers Gait Activity Tolerance Progress Towards Goals Progressing Toward Goals Assessment Summary Pt progressing well, demo's ability to safely ascend/ descend stairs using B handrails. Improved ease with transfers, requires some cueing for safe sequencing. Goals Bed Mobility Goal Independent Transfer Goal Independent Gait Goal Standby Assistance Gait Distance Minimum of 50 feet with front wheeled walker Other Goals Ability to ascend/descend 6 steps with R hand railing going up. Days to Meet Goals 2 Frequency of Treatment Frequency Of Treatment Twice a Day Treatment Plan Physical Therapy Treatment Plan Bed Mobility Training Transfer Training Gait Training Therapeutic Exercise Post Op Education Discharge Planning Other Recommendations and Next Treatment continue with stair training, Focus trial one walking stick with R handrail use on stairs, continue with bed mobility training Recommendations To Nursing Amount of Assist Needed 1 Person Assist Discharge Recommendations PT Discharge Recommendations Home with Assistance Equipment Needed for Home Before may require bariatric front Discharge wheeled walker - sister has multiple AD's but may not have front wheeled walker
--- NOTE | 2018-02-10 13:00 | OT.IP.EVAL ---
Current Diagnoses Spondylolisthesis, site unspecified (02/08/18) Spondylolisthesis, lumbar region (02/08/18) Spinal stenosis, lumbar region with neurogenic claudication (02/08/18) Arthrodesis status (02/08/18) Surgery Performed Operation Date: 02/08/18 07:45 Actual Procedures p L2-3 Ant/Post Fusion w/Bone Graft(XLIF) & Laminectomy; Partial Removal of Old Hardware - Og Ball MD Past Medical History (Last Updated 01/20/18 @ 13:22 by Cynthia Liriano RN) Anxiety (Acute) Arthritis (Acute) Asthma (Acute) COPD (chronic obstructive pulmonary disease) (Acute) Gout (Acute) HTN (hypertension) (Acute) Kidney stones (Acute) Numbness and tingling of both legs (Acute) Sepsis (Acute) Sleep apnea with use of continuous positive airway pressure (CPAP) (Acute) Surgical History (Last Updated 01/20/18 @ 13:22 by Cynthia Liriano RN) History of back surgery (Acute) History of bilateral carpal tunnel release (Acute) Hx of hand surgery (Acute) Hx of repair of right rotator cuff (Acute) Status post rotator cuff repair Occupational Therapy Inpatient Evaluation/Re-Eval M1 PT/OT-IP Prior Functional Status Start: 02/08/18 15:03 Freq: NEEDED Status: Active Protocol: Document 02/10/18 12:49 ADH (Rec: 02/10/18 13:00 ADH [id number]) Medical Review Prior Functional Status Medical History Reviewed Yes Mobility and Gait modified independent with gait using walking sticks. independent with all ADL's. 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 Social History Household Members family none Living Arrangements House Number of Stairs To Enter/Railing? ramp to access front of [employer]. pt lives alone but sister and b-i-l live next door on property. Home Environment High Toilet Walk in Shower Home Equipment Shower Seat with Backrest Long Handled Shoe Horn Grab Bars Near Toilet Grab Bars In Shower Employment Status Retired M2 OT-IP Current Condition Start: 02/09/18 17:08 Freq: Status: Active Protocol: Document 02/10/18 12:49 ADH (Rec: 02/10/18 13:00 ADH [id number]) Occupational Therapy Current Condition Current Condition Evaluation Date 02/10/18 Treatment Diagnosis L2-L3 ant/post lami with fusion and bone graft Diagnosis Onset Date 02/08/18 Post Operative Precautions Lumbar Precautions Log Roll No Twisting Limit Bending Lifting Restriction of 10 lbs Gait Belt above Incisional Area Weight Bearing Status Weight Bearing Status Full Weight Bearing M3 OT- IP Subjective and Pain Start: 02/09/18 17:08 Freq: Status: Active Protocol: Document 02/10/18 12:49 ADH (Rec: 02/10/18 13:00 ADH [id number]) OT- Subjective Occupational Therapy Visit Type Type Initial Evaluation Visit Start Time 11:31 Visit Stop Time 12:02 Total Visit Minutes 31 OT Pain Assessment Pain When Pain Assessed During Mobility Pain Present Pain Present Denied Pain M4 OT- IP ADL's Start: 02/09/18 17:08 Freq: Status: Active Protocol: Document 02/10/18 12:49 ADH (Rec: 02/10/18 13:00 ADH [id number]) OT ADL-Dressing General Eval Lower Body Dressing Ability Standby Assistance Areas Needing Assistance Retrieving/Set-up of Clothing Assistive Devices Dressing Assistive Devices Long Handled Shoe Horn Slot Shift Supervisor Sock Aid Comments OT Dressing Comments Pt able to demo donning/ doffing shorts, socks, and slippers with long handled equipment after instruction. OT ADL-Toileting Comments OT Toileting Comments Pt able to transfer on/off toilet with arm rests with SBA only. M6 OT- IP Functional Cognition Start: 02/09/18 17:08 Freq: Status: Active Protocol: Document 02/10/18 12:49 ADH (Rec: 02/10/18 13:00 ADH [id number]) Cognitive Factors Limiting Selfcare Function Cognitive Ability Level of Alertness Alert Patient Orientation Name Birthday Month Date Year Day of Week Place Situation Attention Span Ability Capable of Focused Attention Capable of Sustained Attention Ability to Follow Commands Able to Follow Multi-Step Commands Memory Description No Deficits Noted Safety Awareness No Deficits Noted Problem Solving Ability No deficits Noted Executive Function Ability No Deficits Noted Abstract Thinking Ability No Deficits Noted OT- Vision and Hearing OT- Hearing Assessment OT- Hearing Assessment WFL OT- Vision Assessment Visual Acuity WFL M7 OT- IP Mobility and Balance Start: 02/09/18 17:08 Freq: Status: Active Protocol: Document 02/10/18 12:49 ADH (Rec: 02/10/18 13:00 ADH [id number]) OT-Transfer Assessment Sit to and From Stand Sit to and from Stand Contact Guard Assistance Transfers Transfer Ability Contact Guard Assistance Technique Transfer Destination Bedside Commode Chair Transfer Technique Stand Step Pivot Devices Transfer Assistive Devices Gait Belt Front Wheeled Walker OT- Gait Assessment Gait Distance (Feet) (feet) 22 M8 OT- IP Objective Assessments Start: 02/09/18 17:08 Freq: Status: Active Protocol: Document 02/10/18 12:49 ADH (Rec: 02/10/18 13:00 ADH [id number]) OT Gross Range of Motion Upper Extremity Range of Motion Assessment Within Functional Limits OT Strength Upper Extremity Strength Assessment Within Functional Limits OT- Coordination Assessment Upper Extremity Finger Tapping Test Right UE Impaired M9 OT- IP Assessment and Plan Start: 02/09/18 17:08 Freq: Status: Active Protocol: Document 02/10/18 12:49 ADH (Rec: 02/10/18 13:00 ADH [id number]) OT Summary Assessment and Plan Potential Rehabilitation Potential Excellent Analytic Complexity at Evaluation Low Summary OT Impairments Pain Progress Towards Goals Progressing Toward Goals Assessment Summary Pt nearing baseline bADLs per report, with continued difficulty in transfers only. Pt with large body size impacting ability to transfer in/out of bed and up from soft /low surface while maintaining back precautions. Pt safe to d/c home once medically stable and cleared bed mobility from PT. No further OT needs noted at this time. Discharge Recommendations OT Discharge Recommendations Home with Assistance
[2018-02-10 13:45] VITALS: BP 120/69; PULSE 98; RESP 16
--- NOTE | 2018-02-10 14:50 | PT.IPTN ---
Current Diagnoses Spondylolisthesis, site unspecified (02/08/18) Spondylolisthesis, lumbar region (02/08/18) Spinal stenosis, lumbar region with neurogenic claudication (02/08/18) Arthrodesis status (02/08/18) Surgery Performed Operation Date: 02/08/18 07:45 Actual Procedures p L2-3 Ant/Post Fusion w/Bone Graft(XLIF) & Laminectomy; Partial Removal of Old Hardware - Og Ball MD Physical Therapy Treatment Note M2 PT-IP Current Condition Start: 02/08/18 15:03 Freq: NEEDED Status: Active Protocol: Document 02/09/18 10:50 MDD (Rec: 02/09/18 12:16 MDD [id number]) Physical Therapy Current Condition Current Condition Evaluation Date 02/09/18 Treatment Diagnosis impaired mobility, impaired gait, status post L2-3 anterior/posterior fusio Onset Date 02/08/18 Precautions Lumbar Precautions Log Roll No Twisting Limit Bending Lifting Restriction of 10 lbs Gait Belt above Incisional Area Weight Bearing Status Weight Bearing Status Full Weight Bearing M3 PT-IP Subjective Start: 02/08/18 15:03 Freq: NEEDED Status: Active Protocol: Document 02/10/18 14:50 GGD (Rec: 02/10/18 15:33 GGD [id number]) Subjective Physical Therapy Visit Type Type Treatment Note Visit Start Time 14:40 Visit Stop Time 14:50 Total Visit Minutes 30 Number of PASSENGER SERVICE REPRESENTATIVE Visits 1 Physical Therapy Visit Comments Patient Comments Pt states he doing a little better. Therapy Pain Assessment Pain When Pain Assessed At Rest Pain Present Pain Present Pain Reported Location Lower Back Intensity 6 Scale Used Numeric (1 - 10) Pain Management Techniques Timing of Activity with Medications M4 PT-IP Mobility and Gait Start: 02/08/18 15:03 Freq: NEEDED Status: Active Protocol: Document 02/10/18 14:50 GGD (Rec: 02/10/18 15:33 GGD [id number]) PT-Bed Mobility Assessment Rolling Type of Rolling Log Rolling Roll to Left Level of Assist Standby Assistance Supine to Sit Supine to Sit Standby Assistance Sit to Supine Sit to Supine Standby Assistance Scooting Scooting to Edge of Bed Independent PT-Transfer Assessment Sit to and From Stand Sit to and from Stand Standby Assistance Contact Guard Assistance Equipment Transfer Assistive Device Gait Belt Front Wheeled Walker Transfers Transfer Destination Bed Transfer Ability Level of Assist Standby Assistance Gait Assessment Gait Gait Assistance Required: Standby Assistance Distance (Feet) (feet) 250 Able to Maintain Weight Bearing Status Yes During Gait Assistive Devices Assistive Device Gait Belt Front Wheeled Walker Gait Deviations General Gait Pattern Within Normal Limits Antalgic Comments Gait Comments Pt ambulates with heavy UE support on FWW. Stair Climbing Assessment Evaluation Level of Assist On Stairs Contact Guard Assistance Devices Stair Climbing Assistive Devices Right Railing Technique/Endurance Stair Climbing Direction Ascend and Descend Stair Climbing Technique Step to Step Number of Steps Climbed 3 Query Text: Stair Climbing Set # Repetitions (reps) 1 M5 PT-IP Objective Assessments Start: 02/08/18 15:03 Freq: NEEDED Status: Active Protocol: Document 02/09/18 16:47 MDD (Rec: 02/09/18 16:58 MDD [id number]) Orientation Orientation/Cognition Level of Alertness Alert M6 PT-IP Treatment Start: 02/08/18 15:03 Freq: NEEDED Status: Active Protocol: Document 02/10/18 12:27 MDD (Rec: 02/10/18 12:37 MDD [email or web address]) Physical Therapy Treatment Other Treatments Other Treatment Performed standing balance exercises including balance without UE support x 30 seconds, small weight shifts without UE support x 20, marching in place x 20 (required handhold assist for safety). M7 PT-IP Assessment and Plan Start: 02/08/18 15:03 Freq: NEEDED Status: Active Protocol: Document 02/10/18 14:50 GGD (Rec: 02/10/18 15:33 GGD [id number]) PT Summary Assessment and Plan Summary Assessment Summary Pt improving with mobility. He needs rails for supine to sit . He improved with stair mobility. Frequency of Treatment Frequency Of Treatment Twice a Day Treatment Plan Physical Therapy Treatment Plan Bed Mobility Training Transfer Training Gait Training Therapeutic Exercise Post Op Education Discharge Planning Recommendations To Nursing Amount of Assist Needed 1 Person Assist Discharge Recommendations PT Discharge Recommendations Home with Assistance Equipment Needed for Home Before bariatric front wheeled walker Discharge
--- NOTE | 2018-02-10 15:00 | PC.NURSE ---
H/V D/C'D PER ORDERS. SCANT DRAINAGE IN H/V UPON D/C. GAUZE AND TEGADERM APPLIED TO SITE.
[2018-02-10 15:42] VITALS: PULSE 97; RESP 20; TEMP 36.7; O2SAT 99
[2018-02-10] MEDS: BISACODYL 10 MG SUPP PR (18:01)
[2018-02-10 19:48] VITALS: BP 154/67; PULSE 100; RESP 20; TEMP 36.8; O2SAT 97
[2018-02-10] MEDS: GABAPENTIN 300 MG CAPSULE PO (20:49)
[2018-02-10] MEDS: SENNOSIDES 8.6 MG TABLET 17.2 MG PO (20:49)
[2018-02-11] MEDS: OXYCODONE IR 5 MG TABLET 10 MG PO ×5 (00:07→12:22)
[2018-02-11 00:20] VITALS: BP 102/57; PULSE 86; RESP 16; TEMP 37.1; O2SAT 97
--- NOTE | 2018-02-11 01:11 | PC.NURSE ---
Addendum entered by Reina Hatch R.N. 02/11/18 06:18: Patient up short time ago to bathroom; got up by himself, out of bed and walked into bathroom. Had liquid, yellow stool along with urinating. Now sitting up in chair since that time. States his pain is 5/10; medicated with Oxycodone 10mg as is his request. Original Note: Addendum entered by Reina Hatch R.N. 02/11/18 03:16: Patient medicated (as requested to be awakened q3h for pain med) with 10mg Oxycodone for 4/10 pain. Patient states 5mg alone does not control the pain. Original Note: Patient is alert and oriented. Breath sounds CTA with RA sat of 97%; using CPAP for sleep. HRR. Denies nausea. BT present; abdomen quite rounded. Is passing flatus and had good BM on previous shift. Had catheter removed yesterday morning and now denies any dysuria, frequency, urgency or incontinence; using urinal at bedside. Is able to turn himself. BLAYNE dressing to mid back intact with small amount sanguinous drainage noted. Dressing to left hip is CDI. CMS intact. Complains of 5/10 pain and was medicated with Oxycodone at 0007 and is currently asleep. Fall risk score is moderate; bed alarm is not needed at this time as patient is oriented and calls for assistance appropriately.
[2018-02-11 08:00] VITALS: BP 125/80; PULSE 89; RESP 18; TEMP 36.8; O2SAT 95
--- NOTE | 2018-02-11 09:15 | PT.IPTN ---
Current Diagnoses Spondylolisthesis, site unspecified (02/08/18) Spondylolisthesis, lumbar region (02/08/18) Spinal stenosis, lumbar region with neurogenic claudication (02/08/18) Arthrodesis status (02/08/18) Surgery Performed Operation Date: 02/08/18 07:45 Actual Procedures p L2-3 Ant/Post Fusion w/Bone Graft(XLIF) & Laminectomy; Partial Removal of Old Hardware - Og Ball MD Physical Therapy Treatment Note M2 PT-IP Current Condition Start: 02/08/18 15:03 Freq: NEEDED Status: Active Protocol: Document 02/09/18 10:50 MDD (Rec: 02/09/18 12:16 MDD [id number]) Physical Therapy Current Condition Current Condition Evaluation Date 02/09/18 Treatment Diagnosis impaired mobility, impaired gait, status post L2-3 anterior/posterior fusio Onset Date 02/08/18 Precautions Lumbar Precautions Log Roll No Twisting Limit Bending Lifting Restriction of 10 lbs Gait Belt above Incisional Area Weight Bearing Status Weight Bearing Status Full Weight Bearing M3 PT-IP Subjective Start: 02/08/18 15:03 Freq: NEEDED Status: Active Protocol: Document 02/11/18 09:15 GGD (Rec: 02/11/18 09:29 GGD [id number]) Subjective Physical Therapy Visit Type Type Treatment Note Visit Start Time 09:00 Visit Stop Time 09:15 Total Visit Minutes 15 Number of SUPERVISING FLOORPERSON Visits 2 Physical Therapy Visit Comments Patient Comments Pt states he feels ready to go home. M4 PT-IP Mobility and Gait Start: 02/08/18 15:03 Freq: NEEDED Status: Active Protocol: Document 02/11/18 09:15 GGD (Rec: 02/11/18 09:29 GGD [id number]) PT-Transfer Assessment Sit to and From Stand Sit to and from Stand Standby Assistance Contact Guard Assistance Equipment Transfer Assistive Device Gait Belt Front Wheeled Walker Transfers Transfer Destination Chair Transfer Ability Level of Assist Standby Assistance Gait Assessment Gait Gait Assistance Required: Standby Assistance Distance (Feet) (feet) 20 Able to Maintain Weight Bearing Status Yes During Gait Assistive Devices Assistive Device Gait Belt Front Wheeled Walker Gait Deviations General Gait Pattern Within Normal Limits Antalgic M5 PT-IP Objective Assessments Start: 02/08/18 15:03 Freq: NEEDED Status: Active Protocol: Document 02/09/18 16:47 MDD (Rec: 02/09/18 16:58 MDD [id number]) Orientation Orientation/Cognition Level of Alertness Alert M6 PT-IP Treatment Start: 02/08/18 15:03 Freq: NEEDED Status: Active Protocol: Document 02/11/18 09:15 GGD (Rec: 02/11/18 09:29 GGD [id number]) Physical Therapy Treatment Education Education Provided Precautions M7 PT-IP Assessment and Plan Start: 02/08/18 15:03 Freq: NEEDED Status: Active Protocol: Document 02/11/18 09:15 GGD (Rec: 02/11/18 09:29 GGD [id number]) PT Summary Assessment and Plan Summary Assessment Summary Pt slowly improving with mobility. He need less assist. Still heavy use of UE with mobility. Frequency of Treatment Frequency Of Treatment Twice a Day Treatment Plan Physical Therapy Treatment Plan Bed Mobility Training Transfer Training Gait Training Therapeutic Exercise Post Op Education Discharge Planning Recommendations To Nursing Amount of Assist Needed 1 Person Assist Discharge Recommendations PT Discharge Recommendations Home with Assistance
[2018-02-11] MEDS: ASPIRIN EC 325 MG TABLET PO (09:20)
[2018-02-11] MEDS: METOPROLOL 50 MG TABLET PO (09:21)
[2018-02-11] MEDS: DOCUSATE 100 MG CAPSULE PO (09:21)
[2018-02-11] MEDS: MULTIVITAMIN 1 TABLET 1 TAB PO (09:21)
[2018-02-11] MEDS: CELECOXIB 200 MG CAPSULE PO (09:21)
--- NOTE | 2018-02-11 09:42 | PM.DS.1 ---
History of Present Illness Date Patient Seen: 02/11/18 Time Patient Seen: 09:43 Chief complaint: [id number] Narrative: status post lumbar fusion Discharge Providers Date of admission: 02/08/18 06:19 Primary care physician: Jeremie Cui MD Consults: 02/08/18 14:18 Consult to Occupational Therapy Evaluate & Treat Comment: Physician Instructions: Evaluate and treat Consult to Physical Therapy Evaluate & Treat Comment: Physician Instructions: Evaluate and Treat Consult to Respiratory Therapy Evaluate & Treat Comment: Physician Instructions: Evaluate and treat 02/10/18 09:13 Consult to Discharge Planning Routine Comment: 02/10/18 15:21 Consult to Home Health Routine Comment: post op XLIF Reason For Exam: FWW for home use Discharge provider: Enma Ortega PA-C Summary Discharge Diagnosis: status post lumbar fusion Hospital Course: Robson was admitted for L2-3 anterior and posterior fusion with bone graft (XLIF) and laminectomy with partial removal of old hardware, and he consented to procedure. On postop day 3. he was feeling well and wanted to go home. He was eating and voiding without difficulty or assistance. Dressings were CDI. He has been up with physical therapy. Hemovac drain was removed. Status at Discharge Functional status at discharge: uses cane/walker Exam Vital Signs (past 8 hours): - 02/11/18 08:00 Temperature 98.2 F Pulse Rate 89 Respiratory Rate 18 Blood Pressure 125/80 H Pulse Oximetry 95 Oxygen Delivery Method Room Air Oxygen Flow Rate 0 Narrative Exam Narrative: Patient is sitting at bedside chair in no acute distress. He is alert and oriented x3. Marcial dressing on back is intact. Anterior approach dressing is CDI. He has been up with PT. Pain is well controlled. He denies any chest pain or shortness of breath. Objective Labs Result Diagrams: 02/09/18 05:31 Discharge Plan Discharge Plan Patient Disposition: Home, Self-Care Discharge comment: DC home today Discharge Med Rec/Prescriptions Prescriptions: New celecoxib [Celebrex] 200 mg Capsule 200 mg PO BID Qty: 60 RF: 0 gabapentin [Neurontin] 300 mg Capsule 300 mg PO BEDTIME Qty: 30 RF: 0 oxycodone 5 mg Tablet 5 mg PO Q4HR Qty: 60 RF: 0 hydroxyzine pamoate 25 mg Capsule 25 mg PO Q6HR Qty: 60 RF: 0 docusate sodium 100 mg Capsule 100 mg PO BID Qty: 60 RF: 0 walker misc .ROUTE .MEDSUPPLY Qty: 1 RF: 0 Continue cholecalciferol (vitamin D3) [Vitamin D3] 1,000 UNIT tablet 1 tab PO DAILY Qty: 0 RF: 0 vitamin B complex [B Complex-Vitamin B12] 1 EACH tablet 1 tab PO DAILY Qty: 0 RF: 0 diphenhydramine HCl [Benadryl Allergy] 25 MG tablet 2 tab PO BEDTIME Qty: 0 RF: 0 qbuitxlc-tkp-WV-lycopen-lutein [Centrum Silver] 0.4-300-250 mg-mcg-mcg Tablet 1 tab PO DAILY Qty: 0 RF: 0 aspirin 325 mg Tablet 5 tab PO DAILY RF: 0 metoprolol tartrate 50 mg Tablet 50 mg PO BID RF: 0 Follow up/Referrals: Og Ball MD [Physician] - (Please follow up in 10-14 days.) Provider Discharge Instructions Diet: Diet as Tolerated Activity: no excessive bending, lifting, or twisting Cold/Heat Therapy: apply ice as needed Wound Care Report to your healthcare provider any signs of infection, such as:: chills, fever and increased pain Dressing: please leave dressing in place until postop appointment Discharge Data Primary Care Provider: Jeremie Cui Attending Provider: Og Ball Admit Date/Time: 02/08/18 06:19 Quality VTE Deep Vein Thrombosis/Pulmonary Embolism Present on Admission: No
--- NOTE | 2018-02-11 13:36 | PC.NURSE ---
PA IN FOR ROUNDING D/C TO HOME ORDERED. PER PA KEEP BLAYNE DRSG ON AT D/C AND PT WILL F/UP WITH [facility] TO HAVE CHANGED NEXT WEEK. PT TO D/C WITH FWW. AWAITING FWW TO ARRIVE TO UNIT. 1335: FWW ARRIVED. PT TRANS TO W/C. ESCORTED OUT BY ELECTROMATIC TYPIST WITH ALL PERSONAL BELONGINGS, D/C PAPERWORK AND SCRIPTS. PT LEFT IN STABLE CONDITION.
== END 2018-02-11 13:42 | disposition home or self-care (01) | DRG 454 ==
PROVIDERS: Admitting Provider Orthopaedic Surgery; Family Provider Family Medicine; PCP Family Medicine; Visit Provider Orthopaedic Surgery
PROC: 0SG00A0 Fusion of Lumbar Vertebral Joint with Interbody Fusion Device, Anterior Approach, Anterior Column, Open Approach (ICD-10-PCS; CPT 22558; principal; 2018-02-08 07:45)
DX: M48.062 Spinal stenosis, lumbar region with neurogenic claudication (principal); Z68.42 Body mass index [BMI] 45.0-49.9, adult; M43.16 Spondylolisthesis, lumbar region; G47.33 Obstructive sleep apnea (adult) (pediatric); F32.9 Major depressive disorder, single episode, unspecified; J44.9 Chronic obstructive pulmonary disease, unspecified; E66.01 Morbid (severe) obesity due to excess calories; I48.91 Unspecified atrial fibrillation
CPT/HCPCS: 36415; 72100; 76001; 85014; 85018; 94762; 97116; 97161; 97165; 97530; 97535; C1776; J0131; J0330; J0595; J1170; J2060; J2250; J2274; J2405; J2704; J3010; J3410

== ENCOUNTER → 2018-10-11 12:03 | Outpatient (CLI) | payer MEDICARE, SELFPAY ==
[2018-02-08 14:24] VITALS: BMI 49.8
--- NOTE | 2018-10-11 12:18 | DI.CT.S_ITS ---
PROCEDURE: CT LUMBAR SPINE WO CON INDICATIONS: LOWER BACK PAIN TECHNIQUE: Noncontrast 3 mm thick sections acquired from the T12 level to the sacrum. Sagittal and coronal reformats were constructed. For radiation dose reduction, the following was used: automated exposure control. COMPARISON: [facility] [place], CR, XR LUMBAR SPINE 2 OR 3 VIEWS, 10/05/2018, 15:34. FINDINGS: Image quality: Excellent. Bones: Posterior fusion from L2-S1 is present with posterior bone grafting. Trace retrolisthesis is present at L5-S1. Intervertebral spacers are present at L2-3, L3-4, L4-5 and L5-S1. Hardware is intact without evidence of fracture. There is a questionable periprosthetic appearance of lucency of the single pedicular screw at the level of L2 which is on the left, which can be indicative of loosening.. . Reactive endplate changes are present at L2-3. Schmorl's node is noted along the inferior endplate of L2. Minimal disc bulge is present at L1 to, L2-3. There is minimal spinal stenosis at L2-3 and L5-S1. Moderate bilateral foraminal narrowing is present at L2-3, minimal to mild bilateral L3-4, mild to moderate bilateral L4-5, moderate to severe left and moderate right L5-S1. Multilevel facet and ligamentum flavum hypertrophy are present. Soft tissues: No retroperitoneal masses or hematomas. Visualized aorta is normal in caliber. IMPRESSION: 1. Extensive post surgical fusion changes as above. 2. Minimal spinal stenosis at L2-3 and L5-S1. 3. Multilevel foraminal narrowing most prominent at L2-3 and L5-S1 secondary to uncovertebral arthropathy as well as retrolisthesis. Dictated by: Tatiana Sagastume M.D. on 10/11/2018 at 13:41 Approved by: Tatiana Sagastume M.D. on 10/11/2018 at 13:57
== END ==
PROVIDERS: Family Provider Family Medicine; PCP Family Medicine; Visit Provider Orthopaedic Surgery
DX: M54.5 Low back pain (principal); M47.816 Spondylosis without myelopathy or radiculopathy, lumbar region; M47.817 Spondylosis without myelopathy or radiculopathy, lumbosacral region; M48.061 Spinal stenosis, lumbar region without neurogenic claudication; M48.07 Spinal stenosis, lumbosacral region; Z98.1 Arthrodesis status
CPT/HCPCS: 72131

== ENCOUNTER → 2019-06-15 10:50 | Outpatient (CLI) | payer MEDICARE, SELFPAY ==
[2018-02-08 14:24] VITALS: BMI 49.8
[2019-06-15 11:34] LABS: Add Manual Diff / Slide Review NO; Basophils Absolute Auto 0 /uL (0-100); Basophils Percent Auto 0.6 % (0-2); Eosinophils Absolute Auto 300 /uL (0-450); Eosinophils Percent Auto 4.8 % (2-4); Hematocrit 45.6 % (41-53); Hemoglobin 15.7 g/dL (13.5-17.5); Lymphocytes Absolute Auto 2300 /uL (1100-4500); Lymphocytes Percent Auto 37.8 % (25-40); Mean Corpuscular HGB Conc 34.3 % (30-36); Mean Corpuscular Hemoglobin 31.9 PG (26-34); Mean Corpuscular Volume 92.8 fL (80-100); Monocytes Absolute Auto 500 /uL (0-900); Monocytes Percent Auto 8.1 % (3-14); Neutrophils Absolute Auto 3000 /uL (1500-7000); Neutrophils Percent Auto 48.7 % (50-75); Platelet Count 139 X10^3/uL (150-400); Red Blood Cell Count 4.92 X10^6/uL (4.5-5.9); Red Cell Distribution Width 13.7 % (11.6-14.8); White Blood Cell Count 6.2 X10^3/uL (4.5-11.0)
[2019-06-15 12:20] LABS: Alanine Aminotransferase 34 IU/L (<50); Albumin 4.1 g/dL (3.5-5.0); Albumin Globulin Ratio 1.3 (1.0-2.8); Alkaline Phosphatase 94 U/L (38-126); Aspartate Aminotransferase 35 IU/L (17-59); Bilirubin Total 0.9 mg/dL (0.2-1.3); Blood Urea Nitrogen 15 mg/dL (9-20); Calcium 9.9 mg/dL (8.4-10.2); Carbon Dioxide 31 mmol/L (22-32); Chloride 104 mmol/L (98-107); Cholesterol 202 mg/dL (140-199); Estimated Glomerular Filt Rate > 60.0 mL/min (>60); Globulin 3.2 g/dL (1.7-4.1); Glucose 114 mg/dL (70-100); HDL Cholesterol 34 mg/dL (40-60); LDL Cholesterol Calculated 122 mg/dL (<100); Potassium 5.1 mmol/L (3.4-5.1); Sodium 140 mmol/L (137-145); Total Protein 7.3 g/dL (6.3-8.2); Triglycerides 231 mg/dL (35-150)
[2019-06-15 12:56] LABS: Thyroid Stimulating Hormone 2.03 uIU/mL (0.47-4.68)
[2019-06-16 14:06] LABS: HEMOLYSIS 17 (0-50); Prostate Specific Antigen Scrn 1.02 ng/mL (0.1-4.0)
== END ==
PROVIDERS: PCP Family Medicine; Visit Provider Family Medicine
DX: I48.91 Unspecified atrial fibrillation (principal); Z12.5 Encounter for screening for malignant neoplasm of prostate
CPT/HCPCS: 36415; 80053; 80061; 84443; 85025; G0103

== ENCOUNTER 2019-09-28 10:30 | Outpatient (RCR) | payer MEDICARE, SELFPAY ==
[2018-02-08 14:24] VITALS: BMI 49.8
--- NOTE | 2019-09-12 15:35 | PT.OIE ---
Current Diagnoses Low back pain (09/12/19) Past Medical History (Last Updated 01/20/18 @ 13:22 by Cynthia Liriano RN) Anxiety (Acute) Arthritis (Acute) Asthma (Acute) COPD (chronic obstructive pulmonary disease) (Acute) Gout (Acute) HTN (hypertension) (Acute) Kidney stones (Acute) Numbness and tingling of both legs (Acute) Sepsis (Acute) Sleep apnea with use of continuous positive airway pressure (CPAP) (Acute) Past Surgical History (Last Updated 01/20/18 @ 13:22 by Cynthia Liriano RN) History of back surgery (Acute) History of bilateral carpal tunnel release (Acute) Hx of hand surgery (Acute) Hx of repair of right rotator cuff (Acute) Status post rotator cuff repair Visit Care Team Role Provider Type Jeremie Cui MD Attending Provider Physician Primary Care Provider Referring Provider Specialty: Family Practice Address: [address] [place] [address], [facility] Email: [email or web address] Physical Therapy Initial Evaluation PT-OP-A Visit Information Start: 09/12/19 12:55 Freq: Status: Active Protocol: Document 09/12/19 09:45 HH (Rec: 09/12/19 15:35 [email or web address]) Out-Patient Physical Therapy Visit Information Visit Information Visit Type Initial Evaluation Visit Start Time 09:45 Visit Stop Time 10:30 Total Visit Minutes 45 Visit Number 08/21 Number of SENIOR BENEFITS SPECIALIST Visits 0 Evaluation Information Evaluation Date 09/12/19 PT-OP-B Current Condition Start: 09/12/19 12:55 Freq: Status: Active Protocol: Document 09/12/19 09:45 HH (Rec: 09/12/19 13:01 [email or web address]) Current Condition History of Current Condition Onset Date 30 years ago Current Complaints Chronic LBP, Left leg weakness , difficulty in walking, poor endurance History of Current Condition Pt is a 59 yo male presents to the clinic with SPC on R hand . His primary c/o is his chronic LBP since 20 years ago and decreased activity tolerance. Pt stated he got his 1st laminectomies at age 20 d/t work accident, followed by a fusion surgery around 14 years ago in [place]. He had surgical complication with post op sepsis who has a 16days hospital stay. He then had his last L2-S1 fusion surgery with Dr. Ball 2 years ago and currently is still recovering. Pt did have multiple rounds of PT at and [facility]. He reports he still has pain at his L lumbar area and often cause radiating pain/ numbness to L side of the hip once he sits/ stands for >20 mins. Any trunk flexion/ extension tend to aggravate his symptoms, but lying down on his side/ back tend to relieve his discomfort . Pt also c/o his stamina/ strength has been progressively getting worse who has to take rest break after 1/4 mile walk with his cane, and he has to go slow for descending on stairs. Pt currently takes 7.2-325 mg hydrocodone 2-3x a day for pain management who also has a extensive hx of using oxycontin and other pain medication. Prior Treatments and Tests CT10/11/18 1. Posterior fusion from L2-S1 is present with posterior bone grafting. Trace retrolisthesis is present at L5-S1. Intervertebral spacers are present at L2-3, L3-4, L4-5 and L5-S1 2. Extensive post surgical fusion changes as above. 3. Minimal spinal stenosis at L2-3 and L5-S1. 4. Multilevel foraminal narrowing most prominent at L2 -3 and L5-S1 secondary to uncovertebral arthropathy as well as retrolisthesis. Treatment Goals Patient/Caregiver Goals 1. To improve his overall endurance to be able to amb a mile without restbreaks 2. To be able to sit/ stand > 30 mins without increase LBP 3. To strength both his LEs Prior Functional Status Baseline Function- ADL's Independent Baseline Function- Mobility Independent Current Functional Impairments (Reported) Functional Limitations- Mobility/Gait Use SPC/ hiking stick for all mobility Personal Factors Other Personal Factors That May Effect PMH includes : Therapy/Recovery chronic smoker (quit 3 years ago) metropotol for A-fib previous pain medication abuser PT-OP-C Subjective Start: 09/12/19 12:55 Freq: Status: Active Protocol: Document 09/12/19 09:45 HH (Rec: 09/12/19 15:35 HH [email or web address]) OP-PT Subjective Patient Comments Patient Comments my back has been bothering me for many many years OP-PT Pain Assessment Location Lower Back Pain Location Details L lumbar region Intensity 6 Scale Used Numeric (1 - 10) Description Aching,Dull,Radiating Frequency Constant Pain Aggravating Factors Activity,Exercise,Bending, Lifting Pain Alleviating Factors Lying Supine PT-OP-D Balance Start: 09/12/19 12:55 Freq: Status: Active Protocol: Document 09/12/19 09:45 HH (Rec: 09/12/19 15:35 HH [email or web address]) Balance Tests Single Limb Standing Single Limb- Right 19s Single Limb- Left 12s PT-OP-F Manual Assessment Start: 09/12/19 12:55 Freq: Status: Active Protocol: Document 09/12/19 09:45 HH (Rec: 09/12/19 15:35 HH [email or web address]) Manual Assessments Soft Tissue Assessment Soft Tissue Mobility Assessment Significant tenderness to touch/ pressure at L2 lumbar paraspinal and spinous process , which created radiating pain / numbness to L side. PT-OP-G Mobility & Gait Start: 09/12/19 12:55 Freq: Status: Active Protocol: Document 09/12/19 09:45 HH (Rec: 09/12/19 15:35 [email or web address]) OP Gait Assessment Assistive Devices Assistive Device Straight Cane Gait Deviations General Gait Pattern Decreased Stride Length, Decreased Feet Clearance,Wide Based Gait Factors Limiting Gait Function Factors Limiting Gait Function Decreased Activity Tolerance, Decreased Strength,Limited Range of Motion,Pain,Poor Balance,Poor Safety Awareness, Respiratory Distress Comments Gait Comments Pt amb with WBOS and mild circumduction for feet clearance. Pt demonstates poor L hip stability during stance phase. Stair Climbing Evaluation Technique/Endurance Stair Climbing Direction Ascend and Descend Stair Climbing Technique Step Over Step,Step to Step Number of Steps Climbed 3 Stair Climbing Set # Repetitions (reps) 3 Comments Stair Climbing Comments Ascend with cane on R hand and L hand on rail, step over pattern descend with Cane on R hand with L hand on rail, step to pattern and reports of L knee pain. PT-OP-H Neuro Start: 09/12/19 12:55 Freq: Status: Active Protocol: Document 09/12/19 09:45 HH (Rec: 09/12/19 15:35 [email or web address]) Sensation Evaluation Gross Sensation Gross Sensation WNL,Left LE Impaired,Right LE Impaired Deep Tendon Reflex & Clonus Assessment Deep Tendon Reflex Bilateral Achilles Deep Tendon Reflex 1+ Diminished Bilateral Patellar Deep Tendon Reflex 0 Absent PT-OP-K Range of Motion Start: 09/12/19 12:55 Freq: Status: Active Protocol: Document 09/12/19 09:45 HH (Rec: 09/12/19 15:35 [email or web address]) Lumbar Spine Range of Motion Lumbar Spine Active Percentage Testing Position Standing Flexion 50 Extension 0 Rotation Left 20 Rotation Right 20 ROM Limitations Soft Tissue Tightness,Muscle Weakness,Pain Comments Toe touch test = hands 14 inces away from floor jennifer sign with B UEs to push off to recover from bend over position pain reproduced with trunk flexion and extension. PT-OP-L Special Tests Start: 09/12/19 12:55 Freq: Status: Active Protocol: Document 09/12/19 09:45 HH (Rec: 09/12/19 15:35 [email or web address]) Special Tests Lumbar Spine Special Tests Standing Flexion Test Results +VE L>R Comments radiating pain and numbness to L lower back Compression Test Results +VE L>R Comments radiating pain and numbness to L lower back PT-OP-M Strength Start: 09/12/19 12:55 Freq: Status: Active Protocol: Document 09/12/19 09:45 HH (Rec: 09/12/19 15:35 [email or web address]) Hip Strength Hip Manual Muscle Testing Right Flexion (L2) 5 Normal Extension (S1) 5 Normal Abduction 5 Normal Adduction 5 Normal Left Flexion (L2) 4+ Good+ Extension (S1) 4 Good Abduction 4 Good Adduction 4+ Good+ Knee Strength Knee Manual Muscle Testing Right Flexion (S2) 5 Normal Extension (L3) 5 Normal Left Flexion (S2) 4 Good Extension (L3) 4+ Good+ Reason Not Measured Pain Ankle/Foot Strength Ankle and Foot Manual Muscle Testing Left Dorsiflexion (L4) 4+ Good+ Plantarflexion (S1) 4+ Good+ Inversion 4+ Good+ Eversion (S1) 4+ Good+ Right Dorsiflexion (L4) 5 Normal Plantarflexion (S1) 5 Normal Inversion 5 Normal Eversion (S1) 5 Normal PT-OP-T Assessment and Plan Start: 09/12/19 12:55 Freq: Status: Active Protocol: Document 09/12/19 09:45 HH (Rec: 09/12/19 15:35 [email or web address]) Physical Therapy Assessment Goals pain Impairment pain increased after sitting/ standing >20 mins Short Term Goal (STG) Pt will have LBP no more than 4/10 after sitting /standing > 20 mins STG Duration 6 weeks [facility] Goal (LTG) Pt will have LBP no more than 2/10 after sitting /standing 40 mins LTG Duration 12 weeks stair climbing Impairment pt use both SPC and hand rail for stair climbing Short Term Goal (STG) Pt will be able to climb stairs with R UE on rail only STG Duration 6 weeks [facility] Goal (LTG) Pt will be able to climb stairs with R UE on rail only, along with reciprocal pattern to improve his community mobility LTG Duration 12 weeks 6MWT Impairment 6MWT= 844ft with Spc Short Term Goal (STG) Pt will be able to reach 1000 with spc for 6 MWT to improve his activity tolerance STG Duration 6 weeks [facility] Goal (LTG) Pt will be able to reach 1000 without for 6 MWT to improve his activity tolerance for community mobility LTG Duration 12 weeks neurological symptoms Impairment numbness and radiating pain at L lower back Short Term Goal (STG) Pt will not have radiating pain / numbness to L lower back against maunal pressure STG Duration 6 weeks [employer] Goal (LTG) Pt will not have radiating pain / numbness to L lower back while sitting > 20 mins LTG Duration 12 weeks Assessment Summary Assessment Pt is a 59 yo presents to clinic with chronic LBP and poor activitiy tolerance. Pt currently still has residual radiating L low back pain with lumbar spinal movement after his 3 back surgeries, along with worsening stamina for functional activities such as walking, stair climbing and sitting/standing. Upon assessment, pt is very pain sensitive and his radiating pain/numbness was reproduced with pressure to L lumbar paraspinals at L2 level which indicate possbile lumbar radiculopathy. Pt also shows lack of segmental lumbar mobility during standing toe touch test, along with decreased LLE strength. His 6 MWT= 844ft with SPC and SLS L= 12s, R=19s which both are below average from his peer group significantly. Pt will be a good candidate from skilled therapy to address his pain management, poor balance , lack of activity endurance and LLE weakness in order to improve his quality of life. Physical Therapy Plan Frequency and Duration Frequency of Treatment 2x/Week Duration of Treatment 12 weeks Plan of Care Start Date 09/12/19 Plan of Care End Date 12/11/19 Therapeutic Interventions Therapeutic Interventions Balance Training,Coordination Training,Gait Training,Home Exercise Program,Joint Mobilizations,Manual Therapy, Neuromuscular Re-education, Patient/Caregiver Education, Self-Care/Home Management, Sensory Integration,Soft Tissue Mobilization,Taping, Therapeutic Activities, Therapeutic Exercises Modalities Cold Pack/Ice Massage,Electric Stimulation,Hot Packs, Infrared Therapy,Iontophoresis ,Paraffin Bath,Traction- Mechanical,Ultrasound Next Visit Focus/Plan Next Note Type Treatment Note Next Visit Plan start with cardio machine STM on relaxing L paraspinal, lumbar mobility/ stabilization in supine/ prone position LLE strengthening balance training as yamile
--- NOTE | 2019-09-14 12:16 | PT.OTN ---
Current Diagnoses Low back pain (09/14/19) Physical Therapy Treatment Note PT-OP-A Visit Information Start: 09/12/19 12:55 Freq: Status: Active Protocol: Document 09/14/19 11:19 HH (Rec: 09/14/19 12:16 [id number]) Out-Patient Physical Therapy Visit Information Visit Information Visit Type Treatment Note Visit Start Time 11:18 Visit Stop Time 12:05 Total Visit Minutes 47 Visit Number 09/21 Number of TECHNICIAN Visits 0 PT-OP-B Current Condition Start: 09/12/19 12:55 Freq: Status: Active Protocol: Document 09/12/19 09:45 HH (Rec: 09/12/19 13:01 HH [email or web address]) Current Condition History of Current Condition Onset Date 30 years ago Current Complaints Chronic LBP, Left leg weakness , difficulty in walking, poor endurance History of Current Condition Pt is a 59 yo male presents to the clinic with SPC on R hand . His primary c/o is his chronic LBP since 20 years ago and decreased activity tolerance. Pt stated he got his 1st laminectomies at age 20 d/t work accident, followed by a fusion surgery around 14 years ago in [place]. He had surgical complication with post op sepsis who has a 16days hospital stay. He then had his last L2-S1 fusion surgery with Dr. Ball 2 years ago and currently is still recovering. Pt did have multiple rounds of PT at and [facility]. He reports he still has pain at his L lumbar area and often cause radiating pain/ numbness to L side of the hip once he sits/ stands for >20 mins. Any trunk flexion/ extension tend to aggravate his symptoms, but lying down on his side/ back tend to relieve his discomfort . Pt also c/o his stamina/ strength has been progressively getting worse who has to take rest break after 1/4 mile walk with his cane, and he has to go slow for descending on stairs. Pt currently takes 7.2-325 mg hydrocodone 2-3x a day for pain management who also has a extensive hx of using oxycontin and other pain medication. Prior Treatments and Tests CT10/11/18 1. Posterior fusion from L2-S1 is present with posterior bone grafting. Trace retrolisthesis is present at L5-S1. Intervertebral spacers are present at L2-3, L3-4, L4-5 and L5-S1 2. Extensive post surgical fusion changes as above. 3. Minimal spinal stenosis at L2-3 and L5-S1. 4. Multilevel foraminal narrowing most prominent at L2 -3 and L5-S1 secondary to uncovertebral arthropathy as well as retrolisthesis. Treatment Goals Patient/Caregiver Goals 1. To improve his overall endurance to be able to amb a mile without restbreaks 2. To be able to sit/ stand > 30 mins without increase LBP 3. To strength both his LEs Prior Functional Status Baseline Function- ADL's Independent Baseline Function- Mobility Independent Current Functional Impairments (Reported) Functional Limitations- Mobility/Gait Use SPC/ hiking stick for all mobility Personal Factors Other Personal Factors That May Effect PMH includes : Therapy/Recovery chronic smoker (quit 3 years ago) metropotol for A-fib previous pain medication abuser PT-OP-C Subjective Start: 09/12/19 12:55 Freq: Status: Active Protocol: Document 09/14/19 11:19 HH (Rec: 09/14/19 12:16 HH [id number]) OP-PT Subjective Patient Comments Patient Comments Im ready for PT PT-OP-D Balance Start: 09/12/19 12:55 Freq: Status: Active Protocol: Document 09/12/19 09:45 HH (Rec: 09/12/19 15:35 [email or web address]) Balance Tests Single Limb Standing Single Limb- Right 19s Single Limb- Left 12s PT-OP-F Manual Assessment Start: 09/12/19 12:55 Freq: Status: Active Protocol: Document 09/12/19 09:45 HH (Rec: 09/12/19 15:35 [email or web address]) Manual Assessments Soft Tissue Assessment Soft Tissue Mobility Assessment Significant tenderness to touch/ pressure at L2 lumbar paraspinal and spinous process , which created radiating pain / numbness to L side. PT-OP-G Mobility & Gait Start: 09/12/19 12:55 Freq: Status: Active Protocol: Document 09/12/19 09:45 HH (Rec: 09/12/19 15:35 [email or web address]) OP Gait Assessment Assistive Devices Assistive Device Straight Cane Gait Deviations General Gait Pattern Decreased Stride Length, Decreased Feet Clearance,Wide Based Gait Factors Limiting Gait Function Factors Limiting Gait Function Decreased Activity Tolerance, Decreased Strength,Limited Range of Motion,Pain,Poor Balance,Poor Safety Awareness, Respiratory Distress Comments Gait Comments Pt amb with WBOS and mild circumduction for feet clearance. Pt demonstates poor L hip stability during stance phase. Stair Climbing Evaluation Technique/Endurance Stair Climbing Direction Ascend and Descend Stair Climbing Technique Step Over Step,Step to Step Number of Steps Climbed 3 Stair Climbing Set # Repetitions (reps) 3 Comments Stair Climbing Comments Ascend with cane on R hand and L hand on rail, step over pattern descend with Cane on R hand with L hand on rail, step to pattern and reports of L knee pain. PT-OP-H Neuro Start: 09/12/19 12:55 Freq: Status: Active Protocol: Document 09/12/19 09:45 HH (Rec: 09/12/19 15:35 [email or web address]) Sensation Evaluation Gross Sensation Gross Sensation WNL,Left LE Impaired,Right LE Impaired Deep Tendon Reflex & Clonus Assessment Deep Tendon Reflex Bilateral Achilles Deep Tendon Reflex 1+ Diminished Bilateral Patellar Deep Tendon Reflex 0 Absent PT-OP-K Range of Motion Start: 09/12/19 12:55 Freq: Status: Active Protocol: Document 09/12/19 09:45 HH (Rec: 09/12/19 15:35 [email or web address]) Lumbar Spine Range of Motion Lumbar Spine Active Percentage Testing Position Standing Flexion 50 Extension 0 Rotation Left 20 Rotation Right 20 ROM Limitations Soft Tissue Tightness,Muscle Weakness,Pain Comments Toe touch test = hands 14 inces away from floor jennifer sign with B UEs to push off to recover from bend over position pain reproduced with trunk flexion and extension. PT-OP-L Special Tests Start: 09/12/19 12:55 Freq: Status: Active Protocol: Document 09/12/19 09:45 HH (Rec: 09/12/19 15:35 [email or web address]) Special Tests Lumbar Spine Special Tests Standing Flexion Test Results +VE L>R Comments radiating pain and numbness to L lower back Compression Test Results +VE L>R Comments radiating pain and numbness to L lower back PT-OP-M Strength Start: 09/12/19 12:55 Freq: Status: Active Protocol: Document 09/12/19 09:45 HH (Rec: 09/12/19 15:35 [email or web address]) Hip Strength Hip Manual Muscle Testing Right Flexion (L2) 5 Normal Extension (S1) 5 Normal Abduction 5 Normal Adduction 5 Normal Left Flexion (L2) 4+ Good+ Extension (S1) 4 Good Abduction 4 Good Adduction 4+ Good+ Knee Strength Knee Manual Muscle Testing Right Flexion (S2) 5 Normal Extension (L3) 5 Normal Left Flexion (S2) 4 Good Extension (L3) 4+ Good+ Reason Not Measured Pain Ankle/Foot Strength Ankle and Foot Manual Muscle Testing Left Dorsiflexion (L4) 4+ Good+ Plantarflexion (S1) 4+ Good+ Inversion 4+ Good+ Eversion (S1) 4+ Good+ Right Dorsiflexion (L4) 5 Normal Plantarflexion (S1) 5 Normal Inversion 5 Normal Eversion (S1) 5 Normal PT-OP-Q Treatments Start: 09/12/19 12:55 Freq: Status: Active Protocol: Document 09/14/19 11:19 (Rec: 09/14/19 12:16 [id number]) Cardio Equipment Recumbent Stepper (Sci-Fit) Duration (Minutes) 6 Resistance 1 Therapeutic Exercises Supine Exercises tennis ball release Supine Exercise Name L lumbar paraspinals and L glute Side left LTR Side bilateral Reps/Minutes 8 x2 Comments LBP reported at end range to R supine sciatic nerve glide Supine Exercise Name hip at 90 degrees Side left Reps/Minutes 8 x 2 Comments LBP reported at end range Gait Training Gait Activity w/ SPC Description 5 mins Device Used SPC on R Level of Assistance SBA Surface ground level Distance/Duration 5 laps Manual Therapy Treatment Soft Tissue Mobilization L paraspinals Body Location lumbar Mobilization Type Sustained Pressure,Trigger Point Release Intensity/Depth Superficial Body Position Prone Comments radiating pain to L side of the back reproduced Scar mob Body Location lumbar fusion scar Mobilization Type Myofascial Release,Rolling Intensity/Depth Moderate Body Position Prone PT-OP-T Assessment and Plan Start: 09/12/19 12:55 Freq: Status: Active Protocol: Document 09/14/19 11:19 (Rec: 09/14/19 12:16 [id number]) Physical Therapy Assessment Goals pain Impairment pain increased after sitting/ standing >20 mins Short Term Goal (STG) Pt will have LBP no more than 4/10 after sitting /standing > 20 mins STG Duration 6 weeks Intermediate Goal (LTG) Pt will have LBP no more than 2/10 after sitting /standing 40 mins LTG Duration 12 weeks stair climbing Impairment pt use both SPC and hand rail for stair climbing Short Term Goal (STG) Pt will be able to climb stairs with R UE on rail only STG Duration 6 weeks Intermediate Goal (LTG) Pt will be able to climb stairs with R UE on rail only, along with reciprocal pattern to improve his community mobility LTG Duration 12 weeks 6MWT Impairment 6MWT= 844ft with Spc Short Term Goal (STG) Pt will be able to reach 1000 with spc for 6 MWT to improve his activity tolerance STG Duration 6 weeks Intermediate Goal (LTG) Pt will be able to reach 1000 without for 6 MWT to improve his activity tolerance for community mobility LTG Duration 12 weeks neurological symptoms Impairment numbness and radiating pain at L lower back Short Term Goal (STG) Pt will not have radiating pain / numbness to L lower back against maunal pressure STG Duration 6 weeks Tree Warden Goal (LTG) Pt will not have radiating pain / numbness to L lower back while sitting > 20 mins LTG Duration 12 weeks Assessment Summary Assessment Pt has reproduced raditating pain with trunk flexion and L SB. Pt primarily bend over through lumbar flexion but lack of hip flexion. Noticed pt has significant limitation on L posterior chain flexibility. His back pain also reproduced with SLR to end range. Add tennis ball release, sciatic nerve glide and LTR Physical Therapy Plan Next Visit Focus/Plan Next Note Type Treatment Note Next Visit Plan get Oswestry assess post session tolerance start with cardio machine STM on relaxing L paraspinal, lumbar mobility/ stabilization in supine/ prone position LLE strengthening balance training as yamile HS mobility, hip flexion ex, lumbar extension based ex.
--- NOTE | 2019-09-20 14:32 | PT.OTN ---
Current Diagnoses Low back pain (09/20/19) Physical Therapy Treatment Note PT-OP-A Visit Information Start: 09/12/19 12:55 Freq: Status: Active Protocol: Document 09/20/19 13:49 HH (Rec: 09/20/19 14:32 HH [id number]) Out-Patient Physical Therapy Visit Information Visit Information Visit Type Treatment Note Visit Start Time 13:49 Visit Stop Time 14:30 Total Visit Minutes 41 Visit Number 10/19 Number of INDUSTRIAL TECH INSTRUCTOR Visits 0 PT-OP-B Current Condition Start: 09/12/19 12:55 Freq: Status: Active Protocol: Document 09/12/19 09:45 HH (Rec: 09/12/19 13:01 HH [email or web address]) Current Condition History of Current Condition Onset Date 30 years ago Current Complaints Chronic LBP, Left leg weakness , difficulty in walking, poor endurance History of Current Condition Pt is a 59 yo male presents to the clinic with SPC on R hand . His primary c/o is his chronic LBP since 20 years ago and decreased activity tolerance. Pt stated he got his 1st laminectomies at age 20 d/t work accident, followed by a fusion surgery around 14 years ago in [place]. He had surgical complication with post op sepsis who has a 16days hospital stay. He then had his last L2-S1 fusion surgery with Dr. Ball 2 years ago and currently is still recovering. Pt did have multiple rounds of PT at and [facility]. He reports he still has pain at his L lumbar area and often cause radiating pain/ numbness to L side of the hip once he sits/ stands for >20 mins. Any trunk flexion/ extension tend to aggravate his symptoms, but lying down on his side/ back tend to relieve his discomfort . Pt also c/o his stamina/ strength has been progressively getting worse who has to take rest break after 1/4 mile walk with his cane, and he has to go slow for descending on stairs. Pt currently takes 7.2-325 mg hydrocodone 2-3x a day for pain management who also has a extensive hx of using oxycontin and other pain medication. Prior Treatments and Tests CT10/11/18 1. Posterior fusion from L2-S1 is present with posterior bone grafting. Trace retrolisthesis is present at L5-S1. Intervertebral spacers are present at L2-3, L3-4, L4-5 and L5-S1 2. Extensive post surgical fusion changes as above. 3. Minimal spinal stenosis at L2-3 and L5-S1. 4. Multilevel foraminal narrowing most prominent at L2 -3 and L5-S1 secondary to uncovertebral arthropathy as well as retrolisthesis. Treatment Goals Patient/Caregiver Goals 1. To improve his overall endurance to be able to amb a mile without restbreaks 2. To be able to sit/ stand > 30 mins without increase LBP 3. To strength both his LEs Prior Functional Status Baseline Function- ADL's Independent Baseline Function- Mobility Independent Current Functional Impairments (Reported) Functional Limitations- Mobility/Gait Use SPC/ hiking stick for all mobility Personal Factors Other Personal Factors That May Effect PMH includes : Therapy/Recovery chronic smoker (quit 3 years ago) metropotol for A-fib previous pain medication abuser PT-OP-C Subjective Start: 09/12/19 12:55 Freq: Status: Active Protocol: Document 09/20/19 13:49 HH (Rec: 09/20/19 14:32 HH [id number]) OP-PT Subjective Patient Comments Patient Comments Last visit was pretty ok and i didnt get too sore. My back still has some pain on the L side. PT-OP-D Balance Start: 09/12/19 12:55 Freq: Status: Active Protocol: Document 09/12/19 09:45 HH (Rec: 09/12/19 15:35 HH [email or web address]) Balance Tests Single Limb Standing Single Limb- Right 19s Single Limb- Left 12s PT-OP-F Manual Assessment Start: 09/12/19 12:55 Freq: Status: Active Protocol: Document 09/12/19 09:45 HH (Rec: 09/12/19 15:35 HH [email or web address]) Manual Assessments Soft Tissue Assessment Soft Tissue Mobility Assessment Significant tenderness to touch/ pressure at L2 lumbar paraspinal and spinous process , which created radiating pain / numbness to L side. PT-OP-G Mobility & Gait Start: 09/12/19 12:55 Freq: Status: Active Protocol: Document 09/12/19 09:45 HH (Rec: 09/12/19 15:35 HH [email or web address]) OP Gait Assessment Assistive Devices Assistive Device Straight Cane Gait Deviations General Gait Pattern Decreased Stride Length, Decreased Feet Clearance,Wide Based Gait Factors Limiting Gait Function Factors Limiting Gait Function Decreased Activity Tolerance, Decreased Strength,Limited Range of Motion,Pain,Poor Balance,Poor Safety Awareness, Respiratory Distress Comments Gait Comments Pt amb with WBOS and mild circumduction for feet clearance. Pt demonstates poor L hip stability during stance phase. Stair Climbing Evaluation Technique/Endurance Stair Climbing Direction Ascend and Descend Stair Climbing Technique Step Over Step,Step to Step Number of Steps Climbed 3 Stair Climbing Set # Repetitions (reps) 3 Comments Stair Climbing Comments Ascend with cane on R hand and L hand on rail, step over pattern descend with Cane on R hand with L hand on rail, step to pattern and reports of L knee pain. PT-OP-H Neuro Start: 09/12/19 12:55 Freq: Status: Active Protocol: Document 09/12/19 09:45 HH (Rec: 09/12/19 15:35 [email or web address]) Sensation Evaluation Gross Sensation Gross Sensation WNL,Left LE Impaired,Right LE Impaired Deep Tendon Reflex & Clonus Assessment Deep Tendon Reflex Bilateral Achilles Deep Tendon Reflex 1+ Diminished Bilateral Patellar Deep Tendon Reflex 0 Absent PT-OP-K Range of Motion Start: 09/12/19 12:55 Freq: Status: Active Protocol: Document 09/12/19 09:45 HH (Rec: 09/12/19 15:35 [email or web address]) Lumbar Spine Range of Motion Lumbar Spine Active Percentage Testing Position Standing Flexion 50 Extension 0 Rotation Left 20 Rotation Right 20 ROM Limitations Soft Tissue Tightness,Muscle Weakness,Pain Comments Toe touch test = hands 14 inces away from floor jennifer sign with B UEs to push off to recover from bend over position pain reproduced with trunk flexion and extension. PT-OP-L Special Tests Start: 09/12/19 12:55 Freq: Status: Active Protocol: Document 09/12/19 09:45 HH (Rec: 09/12/19 15:35 [email or web address]) Special Tests Lumbar Spine Special Tests Standing Flexion Test Results +VE L>R Comments radiating pain and numbness to L lower back Compression Test Results +VE L>R Comments radiating pain and numbness to L lower back PT-OP-M Strength Start: 09/12/19 12:55 Freq: Status: Active Protocol: Document 09/12/19 09:45 HH (Rec: 09/12/19 15:35 HH [email or web address]) Hip Strength Hip Manual Muscle Testing Right Flexion (L2) 5 Normal Extension (S1) 5 Normal Abduction 5 Normal Adduction 5 Normal Left Flexion (L2) 4+ Good+ Extension (S1) 4 Good Abduction 4 Good Adduction 4+ Good+ Knee Strength Knee Manual Muscle Testing Right Flexion (S2) 5 Normal Extension (L3) 5 Normal Left Flexion (S2) 4 Good Extension (L3) 4+ Good+ Reason Not Measured Pain Ankle/Foot Strength Ankle and Foot Manual Muscle Testing Left Dorsiflexion (L4) 4+ Good+ Plantarflexion (S1) 4+ Good+ Inversion 4+ Good+ Eversion (S1) 4+ Good+ Right Dorsiflexion (L4) 5 Normal Plantarflexion (S1) 5 Normal Inversion 5 Normal Eversion (S1) 5 Normal PT-OP-Q Treatments Start: 09/12/19 12:55 Freq: Status: Active Protocol: Document 09/20/19 13:49 HH (Rec: 09/20/19 14:32 [id number]) Cardio Equipment Recumbent Stepper (Sci-Fit) Duration (Minutes) 6 Resistance 1.5 Therapeutic Exercises Supine Exercises tennis ball release Supine Exercise Name L lumbar paraspinals and L glute Side left supine sciatic nerve glide Supine Exercise Name hip at 90 degrees Side left Reps/Minutes 8 x 2 Comments LBP reported at end range Sidelying Exercises clamshell Side left Reps/Minutes 10 x2 Manual Therapy Treatment Soft Tissue Mobilization L paraspinals Body Location lumbar Mobilization Type Sustained Pressure,Trigger Point Release Intensity/Depth Superficial Body Position Prone Comments radiating pain to L side of the back reproduced Scar mob Body Location lumbar fusion scar Mobilization Type Myofascial Release,Rolling Intensity/Depth Moderate Body Position Prone PT-OP-T Assessment and Plan Start: 09/12/19 12:55 Freq: Status: Active Protocol: Document 09/20/19 13:49 HH (Rec: 09/20/19 14:32 HH [id number]) Physical Therapy Assessment Goals pain Impairment pain increased after sitting/ standing >20 mins Short Term Goal (STG) Pt will have LBP no more than 4/10 after sitting /standing > 20 mins STG Duration 6 weeks Mcc Goal (LTG) Pt will have LBP no more than 2/10 after sitting /standing 40 mins LTG Duration 12 weeks stair climbing Impairment pt use both SPC and hand rail for stair climbing Short Term Goal (STG) Pt will be able to climb stairs with R UE on rail only STG Duration 6 weeks Wire Border Assembler Goal (LTG) Pt will be able to climb stairs with R UE on rail only, along with reciprocal pattern to improve his community mobility LTG Duration 12 weeks 6MWT Impairment 6MWT= 844ft with Spc Short Term Goal (STG) Pt will be able to reach 1000 with spc for 6 MWT to improve his activity tolerance STG Duration 6 weeks Mcc Goal (LTG) Pt will be able to reach 1000 without for 6 MWT to improve his activity tolerance for community mobility LTG Duration 12 weeks Assessment Summary Assessment New findings today: Pt amb with significant L trunk rotation during LLE stance phase possibly d/t his very limited L hip mobility. Explained to pt with his gait mechanics and he is receptive to it. Rec him to decrease his R step length for long walk. Physical Therapy Plan Next Visit Focus/Plan Next Note Type Treatment Note Next Visit Plan get Oswestry assess post session tolerance L hip mobility training nerve stretch L glute activation start with cardio machine STM on relaxing L paraspinal, lumbar mobility/ stabilization in supine/ prone position LLE strengthening balance training as yamile HS mobility, hip flexion ex, lumbar extension based ex.
--- NOTE | 2019-09-22 16:57 | PT.OTN ---
Current Diagnoses Low back pain (09/22/19) Physical Therapy Treatment Note PT-OP-A Visit Information Start: 09/12/19 12:55 Freq: Status: Active Protocol: Document 09/22/19 16:37 HH (Rec: 09/22/19 16:57 HH [id number]) Out-Patient Physical Therapy Visit Information Visit Information Visit Type Treatment Note Visit Start Time 16:05 Visit Stop Time 16:46 Total Visit Minutes 41 Visit Number 11/19 Number of ASPHALT ENGINEER Visits 0 PT-OP-B Current Condition Start: 09/12/19 12:55 Freq: Status: Active Protocol: Document 09/12/19 09:45 HH (Rec: 09/12/19 13:01 HH [email or web address]) Current Condition History of Current Condition Onset Date 30 years ago Current Complaints Chronic LBP, Left leg weakness , difficulty in walking, poor endurance History of Current Condition Pt is a 59 yo male presents to the clinic with SPC on R hand . His primary c/o is his chronic LBP since 20 years ago and decreased activity tolerance. Pt stated he got his 1st laminectomies at age 20 d/t work accident, followed by a fusion surgery around 14 years ago in [place]. He had surgical complication with post op sepsis who has a 16days hospital stay. He then had his last L2-S1 fusion surgery with Dr. Ball 2 years ago and currently is still recovering. Pt did have multiple rounds of PT at and [facility]. He reports he still has pain at his L lumbar area and often cause radiating pain/ numbness to L side of the hip once he sits/ stands for >20 mins. Any trunk flexion/ extension tend to aggravate his symptoms, but lying down on his side/ back tend to relieve his discomfort . Pt also c/o his stamina/ strength has been progressively getting worse who has to take rest break after 1/4 mile walk with his cane, and he has to go slow for descending on stairs. Pt currently takes 7.2-325 mg hydrocodone 2-3x a day for pain management who also has a extensive hx of using oxycontin and other pain medication. Prior Treatments and Tests CT10/11/18 1. Posterior fusion from L2-S1 is present with posterior bone grafting. Trace retrolisthesis is present at L5-S1. Intervertebral spacers are present at L2-3, L3-4, L4-5 and L5-S1 2. Extensive post surgical fusion changes as above. 3. Minimal spinal stenosis at L2-3 and L5-S1. 4. Multilevel foraminal narrowing most prominent at L2 -3 and L5-S1 secondary to uncovertebral arthropathy as well as retrolisthesis. Treatment Goals Patient/Caregiver Goals 1. To improve his overall endurance to be able to amb a mile without restbreaks 2. To be able to sit/ stand > 30 mins without increase LBP 3. To strength both his LEs Prior Functional Status Baseline Function- ADL's Independent Baseline Function- Mobility Independent Current Functional Impairments (Reported) Functional Limitations- Mobility/Gait Use SPC/ hiking stick for all mobility Personal Factors Other Personal Factors That May Effect PMH includes : Therapy/Recovery chronic smoker (quit 3 years ago) metropotol for A-fib previous pain medication abuser PT-OP-C Subjective Start: 09/12/19 12:55 Freq: Status: Active Protocol: Document 09/22/19 16:37 HH (Rec: 09/22/19 16:57 HH [id number]) OP-PT Subjective Patient Comments Patient Comments Lory been doing my home exercies and i started noticing my trunk rotation while walking. My back still feels around the same but i do feel more mobile. Patient Reported Progress Improving PT-OP-D Balance Start: 09/12/19 12:55 Freq: Status: Active Protocol: Document 09/12/19 09:45 HH (Rec: 09/12/19 15:35 HH [email or web address]) Balance Tests Single Limb Standing Single Limb- Right 19s Single Limb- Left 12s PT-OP-F Manual Assessment Start: 09/12/19 12:55 Freq: Status: Active Protocol: Document 09/12/19 09:45 HH (Rec: 09/12/19 15:35 HH [email or web address]) Manual Assessments Soft Tissue Assessment Soft Tissue Mobility Assessment Significant tenderness to touch/ pressure at L2 lumbar paraspinal and spinous process , which created radiating pain / numbness to L side. PT-OP-G Mobility & Gait Start: 09/12/19 12:55 Freq: Status: Active Protocol: Document 09/12/19 09:45 HH (Rec: 09/12/19 15:35 HH [email or web address]) OP Gait Assessment Assistive Devices Assistive Device Straight Cane Gait Deviations General Gait Pattern Decreased Stride Length, Decreased Feet Clearance,Wide Based Gait Factors Limiting Gait Function Factors Limiting Gait Function Decreased Activity Tolerance, Decreased Strength,Limited Range of Motion,Pain,Poor Balance,Poor Safety Awareness, Respiratory Distress Comments Gait Comments Pt amb with WBOS and mild circumduction for feet clearance. Pt demonstates poor L hip stability during stance phase. Stair Climbing Evaluation Technique/Endurance Stair Climbing Direction Ascend and Descend Stair Climbing Technique Step Over Step,Step to Step Number of Steps Climbed 3 Stair Climbing Set # Repetitions (reps) 3 Comments Stair Climbing Comments Ascend with cane on R hand and L hand on rail, step over pattern descend with Cane on R hand with L hand on rail, step to pattern and reports of L knee pain. PT-OP-H Neuro Start: 09/12/19 12:55 Freq: Status: Active Protocol: Document 09/12/19 09:45 HH (Rec: 09/12/19 15:35 [email or web address]) Sensation Evaluation Gross Sensation Gross Sensation WNL,Left LE Impaired,Right LE Impaired Deep Tendon Reflex & Clonus Assessment Deep Tendon Reflex Bilateral Achilles Deep Tendon Reflex 1+ Diminished Bilateral Patellar Deep Tendon Reflex 0 Absent PT-OP-K Range of Motion Start: 09/12/19 12:55 Freq: Status: Active Protocol: Document 09/12/19 09:45 HH (Rec: 09/12/19 15:35 [email or web address]) Lumbar Spine Range of Motion Lumbar Spine Active Percentage Testing Position Standing Flexion 50 Extension 0 Rotation Left 20 Rotation Right 20 ROM Limitations Soft Tissue Tightness,Muscle Weakness,Pain Comments Toe touch test = hands 14 inces away from floor jennifer sign with B UEs to push off to recover from bend over position pain reproduced with trunk flexion and extension. PT-OP-L Special Tests Start: 09/12/19 12:55 Freq: Status: Active Protocol: Document 09/12/19 09:45 HH (Rec: 09/12/19 15:35 [email or web address]) Special Tests Lumbar Spine Special Tests Standing Flexion Test Results +VE L>R Comments radiating pain and numbness to L lower back Compression Test Results +VE L>R Comments radiating pain and numbness to L lower back PT-OP-M Strength Start: 09/12/19 12:55 Freq: Status: Active Protocol: Document 09/12/19 09:45 HH (Rec: 02/11/20 15:35 HH [email or web address]) Hip Strength Hip Manual Muscle Testing Right Flexion (L2) 5 Normal Extension (S1) 5 Normal Abduction 5 Normal Adduction 5 Normal Left Flexion (L2) 4+ Good+ Extension (S1) 4 Good Abduction 4 Good Adduction 4+ Good+ Knee Strength Knee Manual Muscle Testing Right Flexion (S2) 5 Normal Extension (L3) 5 Normal Left Flexion (S2) 4 Good Extension (L3) 4+ Good+ Reason Not Measured Pain Ankle/Foot Strength Ankle and Foot Manual Muscle Testing Left Dorsiflexion (L4) 4+ Good+ Plantarflexion (S1) 4+ Good+ Inversion 4+ Good+ Eversion (S1) 4+ Good+ Right Dorsiflexion (L4) 5 Normal Plantarflexion (S1) 5 Normal Inversion 5 Normal Eversion (S1) 5 Normal PT-OP-Q Treatments Start: 09/12/19 12:55 Freq: Status: Active Protocol: Document 09/22/19 16:37 HH (Rec: 09/22/19 16:57 [id number]) Cardio Equipment Recumbent Stepper (Sci-Fit) Duration (Minutes) 8 Resistance 1.5 Therapeutic Exercises Supine Exercises hip flexor stretch Supine Exercise Name dena stretch Side bilateral Reps/Minutes 30 sec x 8 supine sciatic nerve glide Supine Exercise Name hip at 90 degrees Side left Reps/Minutes 8 x 2 Comments did not c/o LBP Standing Exercises hurdles Side bilateral Equipment Used hurdles Reps/Minutes 6 mins Comments cues on isolated hip flexion hip hinge Side bilateral Reps/Minutes 8 x4 Comments cues on neutral spine Manual Therapy Treatment Soft Tissue Mobilization L paraspinals Body Location lumbar Mobilization Type Sustained Pressure,Trigger Point Release Intensity/Depth Superficial Body Position Prone Comments radiating pain to L side of the back reproduced Scar mob Body Location lumbar fusion scar Mobilization Type Myofascial Release,Rolling Intensity/Depth Moderate Body Position Prone PT-OP-T Assessment and Plan Start: 09/12/19 12:55 Freq: Status: Active Protocol: Document 09/22/19 16:37 HH (Rec: 09/22/19 16:57 [id number]) Physical Therapy Assessment Goals pain Impairment pain increased after sitting/ standing >20 mins Short Term Goal (STG) Pt will have LBP no more than 4/10 after sitting /standing > 20 mins STG Duration 6 weeks Paperhanger Goal (LTG) Pt will have LBP no more than 2/10 after sitting /standing 40 mins LTG Duration 12 weeks stair climbing Impairment pt use both SPC and hand rail for stair climbing Short Term Goal (STG) Pt will be able to climb stairs with R UE on rail only STG Duration 6 weeks Detention Goal (LTG) Pt will be able to climb stairs with R UE on rail only, along with reciprocal pattern to improve his community mobility LTG Duration 12 weeks 6MWT Impairment 6MWT= 844ft with Spc Short Term Goal (STG) Pt will be able to reach 1000 with spc for 6 MWT to improve his activity tolerance STG Duration 6 weeks Paperhanger Goal (LTG) Pt will be able to reach 1000 without for 6 MWT to improve his activity tolerance for community mobility LTG Duration 12 weeks Assessment Summary Assessment tx focused on L hip mobility, hip hinge and endurance training. Pt yamile tx well. Physical Therapy Plan Next Visit Focus/Plan Next Note Type Treatment Note Next Visit Plan get Oswestry assess post session tolerance L hip mobility training nerve stretch L glute activation start with cardio machine STM on relaxing L paraspinal, lumbar mobility/ stabilization in supine/ prone position LLE strengthening balance training as yamile HS mobility, hip flexion ex, lumbar extension based ex. walking program
--- NOTE | 2019-09-26 12:14 | PT.OTN ---
Current Diagnoses Low back pain (09/26/19) Physical Therapy Treatment Note PT-OP-A Visit Information Start: 09/12/19 12:55 Freq: Status: Active Protocol: Document 09/26/19 11:19 HH (Rec: 09/26/19 12:13 [id number]) Out-Patient Physical Therapy Visit Information Visit Information Visit Type Treatment Note Visit Start Time 11:16 Visit Stop Time 12:00 Total Visit Minutes 44 Visit Number 12/19 Number of INSURANCE CLAIMS SPECIALIST Visits 0 PT-OP-B Current Condition Start: 09/12/19 12:55 Freq: Status: Active Protocol: Document 09/12/19 09:45 HH (Rec: 09/12/19 13:01 [email or web address]) Current Condition History of Current Condition Onset Date 30 years ago Current Complaints Chronic LBP, Left leg weakness , difficulty in walking, poor endurance History of Current Condition Pt is a 59 yo male presents to the clinic with SPC on R hand . His primary c/o is his chronic LBP since 20 years ago and decreased activity tolerance. Pt stated he got his 1st laminectomies at age 20 d/t work accident, followed by a fusion surgery around 14 years ago in [place]. He had surgical complication with post op sepsis who has a 16days hospital stay. He then had his last L2-S1 fusion surgery with Dr. Ball 2 years ago and currently is still recovering. Pt did have multiple rounds of PT at and [facility]. He reports he still has pain at his L lumbar area and often cause radiating pain/ numbness to L side of the hip once he sits/ stands for >20 mins. Any trunk flexion/ extension tend to aggravate his symptoms, but lying down on his side/ back tend to relieve his discomfort . Pt also c/o his stamina/ strength has been progressively getting worse who has to take rest break after 1/4 mile walk with his cane, and he has to go slow for descending on stairs. Pt currently takes 7.2-325 mg hydrocodone 2-3x a day for pain management who also has a extensive hx of using oxycontin and other pain medication. Prior Treatments and Tests CT10/11/18 1. Posterior fusion from L2-S1 is present with posterior bone grafting. Trace retrolisthesis is present at L5-S1. Intervertebral spacers are present at L2-3, L3-4, L4-5 and L5-S1 2. Extensive post surgical fusion changes as above. 3. Minimal spinal stenosis at L2-3 and L5-S1. 4. Multilevel foraminal narrowing most prominent at L2 -3 and L5-S1 secondary to uncovertebral arthropathy as well as retrolisthesis. Treatment Goals Patient/Caregiver Goals 1. To improve his overall endurance to be able to amb a mile without restbreaks 2. To be able to sit/ stand > 30 mins without increase LBP 3. To strength both his LEs Prior Functional Status Baseline Function- ADL's Independent Baseline Function- Mobility Independent Current Functional Impairments (Reported) Functional Limitations- Mobility/Gait Use SPC/ hiking stick for all mobility Personal Factors Other Personal Factors That May Effect PMH includes : Therapy/Recovery chronic smoker (quit 3 years ago) metropotol for A-fib previous pain medication abuser PT-OP-C Subjective Start: 09/12/19 12:55 Freq: Status: Active Protocol: Document 09/26/19 11:19 HH (Rec: 09/26/19 12:13 HH [id number]) OP-PT Subjective Patient Comments Patient Comments Lory been walking a little bit more and do my yardwork. But my back is around the same. Patient Reported Progress Improving PT-OP-D Balance Start: 09/12/19 12:55 Freq: Status: Active Protocol: Document 09/12/19 09:45 HH (Rec: 09/12/19 15:35 HH [email or web address]) Balance Tests Single Limb Standing Single Limb- Right 19s Single Limb- Left 12s PT-OP-F Manual Assessment Start: 09/12/19 12:55 Freq: Status: Active Protocol: Document 09/12/19 09:45 HH (Rec: 09/12/19 15:35 HH [email or web address]) Manual Assessments Soft Tissue Assessment Soft Tissue Mobility Assessment Significant tenderness to touch/ pressure at L2 lumbar paraspinal and spinous process , which created radiating pain / numbness to L side. PT-OP-G Mobility & Gait Start: 09/12/19 12:55 Freq: Status: Active Protocol: Document 09/12/19 09:45 HH (Rec: 09/12/19 15:35 HH [email or web address]) OP Gait Assessment Assistive Devices Assistive Device Straight Cane Gait Deviations General Gait Pattern Decreased Stride Length, Decreased Feet Clearance,Wide Based Gait Factors Limiting Gait Function Factors Limiting Gait Function Decreased Activity Tolerance, Decreased Strength,Limited Range of Motion,Pain,Poor Balance,Poor Safety Awareness, Respiratory Distress Comments Gait Comments Pt amb with WBOS and mild circumduction for feet clearance. Pt demonstates poor L hip stability during stance phase. Stair Climbing Evaluation Technique/Endurance Stair Climbing Direction Ascend and Descend Stair Climbing Technique Step Over Step,Step to Step Number of Steps Climbed 3 Stair Climbing Set # Repetitions (reps) 3 Comments Stair Climbing Comments Ascend with cane on R hand and L hand on rail, step over pattern descend with Cane on R hand with L hand on rail, step to pattern and reports of L knee pain. PT-OP-H Neuro Start: 09/12/19 12:55 Freq: Status: Active Protocol: Document 09/12/19 09:45 HH (Rec: 09/12/19 15:35 [email or web address]) Sensation Evaluation Gross Sensation Gross Sensation WNL,Left LE Impaired,Right LE Impaired Deep Tendon Reflex & Clonus Assessment Deep Tendon Reflex Bilateral Achilles Deep Tendon Reflex 1+ Diminished Bilateral Patellar Deep Tendon Reflex 0 Absent PT-OP-K Range of Motion Start: 09/12/19 12:55 Freq: Status: Active Protocol: Document 09/12/19 09:45 HH (Rec: 09/12/19 15:35 [email or web address]) Lumbar Spine Range of Motion Lumbar Spine Active Percentage Testing Position Standing Flexion 50 Extension 0 Rotation Left 20 Rotation Right 20 ROM Limitations Soft Tissue Tightness,Muscle Weakness,Pain Comments Toe touch test = hands 14 inces away from floor jennifer sign with B UEs to push off to recover from bend over position pain reproduced with trunk flexion and extension. PT-OP-L Special Tests Start: 09/12/19 12:55 Freq: Status: Active Protocol: Document 09/12/19 09:45 HH (Rec: 09/12/19 15:35 [email or web address]) Special Tests Lumbar Spine Special Tests Standing Flexion Test Results +VE L>R Comments radiating pain and numbness to L lower back Compression Test Results +VE L>R Comments radiating pain and numbness to L lower back PT-OP-M Strength Start: 09/12/19 12:55 Freq: Status: Active Protocol: Document 09/12/19 09:45 HH (Rec: 09/12/19 15:35 [email or web address]) Hip Strength Hip Manual Muscle Testing Right Flexion (L2) 5 Normal Extension (S1) 5 Normal Abduction 5 Normal Adduction 5 Normal Left Flexion (L2) 4+ Good+ Extension (S1) 4 Good Abduction 4 Good Adduction 4+ Good+ Knee Strength Knee Manual Muscle Testing Right Flexion (S2) 5 Normal Extension (L3) 5 Normal Left Flexion (S2) 4 Good Extension (L3) 4+ Good+ Reason Not Measured Pain Ankle/Foot Strength Ankle and Foot Manual Muscle Testing Left Dorsiflexion (L4) 4+ Good+ Plantarflexion (S1) 4+ Good+ Inversion 4+ Good+ Eversion (S1) 4+ Good+ Right Dorsiflexion (L4) 5 Normal Plantarflexion (S1) 5 Normal Inversion 5 Normal Eversion (S1) 5 Normal PT-OP-Q Treatments Start: 09/12/19 12:55 Freq: Status: Active Protocol: Document 09/26/19 11:19 (Rec: 09/26/19 12:13 [id number]) Cardio Equipment Recumbent Stepper (Sci-Fit) Duration (Minutes) 6 Resistance 1.5 Therapeutic Exercises Supine Exercises supine hip operational risk consultant Side bilateral Equipment Used yellow band Reps/Minutes 12 x 2 supine sciatic nerve glide Supine Exercise Name hip at 90 degrees Side left Reps/Minutes 8 x 2 Comments did not c/o LBP Standing Exercises marching in place Side bilateral Reps/Minutes 8 x 4 Comments cues to reduce lateral weight shift hurdles Side bilateral Equipment Used hurdles Reps/Minutes 6 mins Comments cues on isolated hip flexion hip hinge Standing Exercise Name hands behind back to minimize low back activation Side bilateral Reps/Minutes 8 x4 Comments cues on neutral spine, 2 sets with bar and 2 sets without support Manual Therapy Treatment Soft Tissue Mobilization L glute Body Location hip abductor Mobilization Type Sustained Pressure,Trigger Point Release Intensity/Depth Moderate Body Position Prone L paraspinals Body Location lumbar Mobilization Type Sustained Pressure,Trigger Point Release Intensity/Depth Moderate Body Position Prone Comments radiating pain to L side of the back reproduced but less intense PT-OP-T Assessment and Plan Start: 09/12/19 12:55 Freq: Status: Active Protocol: Document 09/26/19 11:19 (Rec: 09/26/19 12:13 [id number]) Physical Therapy Assessment Goals pain Impairment pain increased after sitting/ standing >20 mins Short Term Goal (STG) Pt will have LBP no more than 4/10 after sitting /standing > 20 mins STG Duration 6 weeks Expediter Service Order Goal (LTG) Pt will have LBP no more than 2/10 after sitting /standing 40 mins LTG Duration 12 weeks stair climbing Impairment pt use both SPC and hand rail for stair climbing Short Term Goal (STG) Pt will be able to climb stairs with R UE on rail only STG Duration 6 weeks Expediter Service Order Goal (LTG) Pt will be able to climb stairs with R UE on rail only, along with reciprocal pattern to improve his community mobility LTG Duration 12 weeks 6MWT Impairment 6MWT= 844ft with Spc Short Term Goal (STG) Pt will be able to reach 1000 with spc for 6 MWT to improve his activity tolerance STG Duration 6 weeks Senior Care Goal (LTG) Pt will be able to reach 1000 without for 6 MWT to improve his activity tolerance for community mobility LTG Duration 12 weeks Assessment Summary Assessment Tx focused on hip mobility, hip hinge pattern and SLS. Pt tends to show excessively engaging lumbar paraspinals for hip hinge/ static standing . Educated him hip hinge pattern today and rec him to walk without SPC since he denies discomfort. Physical Therapy Plan Next Visit Focus/Plan Next Note Type Treatment Note Next Visit Plan get Oswestry assess post session tolerance L hip mobility training nerve stretch L glute activation start with cardio machine STM on relaxing L paraspinal, lumbar mobility/ stabilization in supine/ prone position LLE strengthening balance training as yamile HS mobility, hip flexion ex, hip hinge pattern walking program
--- NOTE | 2019-09-28 11:31 | PT.OTN ---
Current Diagnoses Low back pain (09/28/19) Physical Therapy Treatment Note PT-OP-A Visit Information Start: 09/12/19 12:55 Freq: Status: Active Protocol: Document 09/28/19 10:31 HH (Rec: 09/28/19 11:30 HH [id number]) Out-Patient Physical Therapy Visit Information Visit Information Visit Type Treatment Note Visit Start Time 11:16 Visit Stop Time 12:00 Total Visit Minutes 44 Visit Number 12/19 Number of APPLICATION SECURITY CONSULTANT Visits 0 PT-OP-B Current Condition Start: 09/12/19 12:55 Freq: Status: Active Protocol: Document 09/12/19 09:45 HH (Rec: 09/12/19 13:01 HH [email or web address]) Current Condition History of Current Condition Onset Date 30 years ago Current Complaints Chronic LBP, Left leg weakness , difficulty in walking, poor endurance History of Current Condition Pt is a 59 yo male presents to the clinic with SPC on R hand . His primary c/o is his chronic LBP since 20 years ago and decreased activity tolerance. Pt stated he got his 1st laminectomies at age 20 d/t work accident, followed by a fusion surgery around 14 years ago in [place]. He had surgical complication with post op sepsis who has a 16days hospital stay. He then had his last L2-S1 fusion surgery with Dr. Ball 2 years ago and currently is still recovering. Pt did have multiple rounds of PT at and [facility]. He reports he still has pain at his L lumbar area and often cause radiating pain/ numbness to L side of the hip once he sits/ stands for >20 mins. Any trunk flexion/ extension tend to aggravate his symptoms, but lying down on his side/ back tend to relieve his discomfort . Pt also c/o his stamina/ strength has been progressively getting worse who has to take rest break after 1/4 mile walk with his cane, and he has to go slow for descending on stairs. Pt currently takes 7.2-325 mg hydrocodone 2-3x a day for pain management who also has a extensive hx of using oxycontin and other pain medication. Prior Treatments and Tests CT10/11/18 1. Posterior fusion from L2-S1 is present with posterior bone grafting. Trace retrolisthesis is present at L5-S1. Intervertebral spacers are present at L2-3, L3-4, L4-5 and L5-S1 2. Extensive post surgical fusion changes as above. 3. Minimal spinal stenosis at L2-3 and L5-S1. 4. Multilevel foraminal narrowing most prominent at L2 -3 and L5-S1 secondary to uncovertebral arthropathy as well as retrolisthesis. Treatment Goals Patient/Caregiver Goals 1. To improve his overall endurance to be able to amb a mile without restbreaks 2. To be able to sit/ stand > 30 mins without increase LBP 3. To strength both his LEs Prior Functional Status Baseline Function- ADL's Independent Baseline Function- Mobility Independent Current Functional Impairments (Reported) Functional Limitations- Mobility/Gait Use SPC/ hiking stick for all mobility Personal Factors Other Personal Factors That May Effect PMH includes : Therapy/Recovery chronic smoker (quit 3 years ago) metropotol for A-fib previous pain medication abuser PT-OP-C Subjective Start: 09/12/19 12:55 Freq: Status: Active Protocol: Document 09/28/19 10:31 HH (Rec: 09/28/19 11:30 HH [id number]) OP-PT Subjective Patient Comments Patient Comments Lory been getting around without my cane. I did get sore cause i think im moving around more but i expect that. Patient Reported Progress Improving PT-OP-D Balance Start: 09/12/19 12:55 Freq: Status: Active Protocol: Document 09/12/19 09:45 HH (Rec: 09/12/19 15:35 HH [email or web address]) Balance Tests Single Limb Standing Single Limb- Right 19s Single Limb- Left 12s PT-OP-F Manual Assessment Start: 09/12/19 12:55 Freq: Status: Active Protocol: Document 09/12/19 09:45 HH (Rec: 09/12/19 15:35 HH [email or web address]) Manual Assessments Soft Tissue Assessment Soft Tissue Mobility Assessment Significant tenderness to touch/ pressure at L2 lumbar paraspinal and spinous process , which created radiating pain / numbness to L side. PT-OP-G Mobility & Gait Start: 09/12/19 12:55 Freq: Status: Active Protocol: Document 09/12/19 09:45 HH (Rec: 09/12/19 15:35 HH [email or web address]) OP Gait Assessment Assistive Devices Assistive Device Straight Cane Gait Deviations General Gait Pattern Decreased Stride Length, Decreased Feet Clearance,Wide Based Gait Factors Limiting Gait Function Factors Limiting Gait Function Decreased Activity Tolerance, Decreased Strength,Limited Range of Motion,Pain,Poor Balance,Poor Safety Awareness, Respiratory Distress Comments Gait Comments Pt amb with WBOS and mild circumduction for feet clearance. Pt demonstates poor L hip stability during stance phase. Stair Climbing Evaluation Technique/Endurance Stair Climbing Direction Ascend and Descend Stair Climbing Technique Step Over Step,Step to Step Number of Steps Climbed 3 Stair Climbing Set # Repetitions (reps) 3 Comments Stair Climbing Comments Ascend with cane on R hand and L hand on rail, step over pattern descend with Cane on R hand with L hand on rail, step to pattern and reports of L knee pain. PT-OP-H Neuro Start: 09/12/19 12:55 Freq: Status: Active Protocol: Document 09/12/19 09:45 HH (Rec: 09/12/19 15:35 [email or web address]) Sensation Evaluation Gross Sensation Gross Sensation WNL,Left LE Impaired,Right LE Impaired Deep Tendon Reflex & Clonus Assessment Deep Tendon Reflex Bilateral Achilles Deep Tendon Reflex 1+ Diminished Bilateral Patellar Deep Tendon Reflex 0 Absent PT-OP-K Range of Motion Start: 09/12/19 12:55 Freq: Status: Active Protocol: Document 09/12/19 09:45 HH (Rec: 09/12/19 15:35 [email or web address]) Lumbar Spine Range of Motion Lumbar Spine Active Percentage Testing Position Standing Flexion 50 Extension 0 Rotation Left 20 Rotation Right 20 ROM Limitations Soft Tissue Tightness,Muscle Weakness,Pain Comments Toe touch test = hands 14 inces away from floor jennifer sign with B UEs to push off to recover from bend over position pain reproduced with trunk flexion and extension. PT-OP-L Special Tests Start: 09/12/19 12:55 Freq: Status: Active Protocol: Document 09/12/19 09:45 HH (Rec: 09/12/19 15:35 [email or web address]) Special Tests Lumbar Spine Special Tests Standing Flexion Test Results +VE L>R Comments radiating pain and numbness to L lower back Compression Test Results +VE L>R Comments radiating pain and numbness to L lower back PT-OP-M Strength Start: 09/12/19 12:55 Freq: Status: Active Protocol: Document 09/12/19 09:45 HH (Rec: 09/12/19 15:35 [email or web address]) Hip Strength Hip Manual Muscle Testing Right Flexion (L2) 5 Normal Extension (S1) 5 Normal Abduction 5 Normal Adduction 5 Normal Left Flexion (L2) 4+ Good+ Extension (S1) 4 Good Abduction 4 Good Adduction 4+ Good+ Knee Strength Knee Manual Muscle Testing Right Flexion (S2) 5 Normal Extension (L3) 5 Normal Left Flexion (S2) 4 Good Extension (L3) 4+ Good+ Reason Not Measured Pain Ankle/Foot Strength Ankle and Foot Manual Muscle Testing Left Dorsiflexion (L4) 4+ Good+ Plantarflexion (S1) 4+ Good+ Inversion 4+ Good+ Eversion (S1) 4+ Good+ Right Dorsiflexion (L4) 5 Normal Plantarflexion (S1) 5 Normal Inversion 5 Normal Eversion (S1) 5 Normal PT-OP-Q Treatments Start: 09/12/19 12:55 Freq: Status: Active Protocol: Document 09/28/19 10:31 (Rec: 09/28/19 11:30 [id number]) Cardio Equipment Recumbent Stepper (Sci-Fit) Duration (Minutes) 8 Resistance 2.5 Gym Equipment Shuttle Rebound red Reps/Duration 10 secs x 10 Comments excessive ankle strategy noted . Therapeutic Exercises Supine Exercises tennis ball release Supine Exercise Name on low back and glute Side left supine sciatic nerve glide Supine Exercise Name hip at 90 degrees Side left Reps/Minutes 8 x 2 Comments did not c/o LBP Standing Exercises marching in place Side bilateral Reps/Minutes 8 x 4 Comments cues to reduce lateral weight shift hurdles Side bilateral Equipment Used hurdles and no apollo Reps/Minutes 8 mins Comments cues on isolated hip flexion hip hinge Standing Exercise Name hands behind back to minimize low back activation Side bilateral Reps/Minutes 8 x4 Comments cues on neutral spine, 2 sets with bar and 2 sets without support PT-OP-T Assessment and Plan Start: 09/12/19 12:55 Freq: Status: Active Protocol: Document 09/28/19 10:31 HH (Rec: 09/28/19 11:30 [id number]) Physical Therapy Assessment Goals pain Impairment pain increased after sitting/ standing >20 mins Short Term Goal (STG) Pt will have LBP no more than 4/10 after sitting /standing > 20 mins STG Duration 6 weeks Wood Milling Machine Operator Goal (LTG) Pt will have LBP no more than 2/10 after sitting /standing 40 mins LTG Duration 12 weeks stair climbing Impairment pt use both SPC and hand rail for stair climbing Short Term Goal (STG) Pt will be able to climb stairs with R UE on rail only STG Duration 6 weeks Wood Milling Machine Operator Goal (LTG) Pt will be able to climb stairs with R UE on rail only, along with reciprocal pattern to improve his community mobility LTG Duration 12 weeks 6MWT Impairment 6MWT= 844ft with Spc Short Term Goal (STG) Pt will be able to reach 1000 with spc for 6 MWT to improve his activity tolerance STG Duration 6 weeks Wood Milling Machine Operator Goal (LTG) Pt will be able to reach 1000 without for 6 MWT to improve his activity tolerance for community mobility LTG Duration 12 weeks neurological symptoms Impairment numbness and radiating pain at L lower back Short Term Goal (STG) Pt will not have radiating pain / numbness to L lower back against maunal pressure STG Duration 6 weeks [facility] Goal (LTG) Pt will not have radiating pain / numbness to L lower back while sitting > 20 mins LTG Duration 12 weeks Assessment Summary Assessment tx focused on hip mobility and SLS. Pt did notice his pain on L low back while standing on LLE and used RLE to step over apollo but decreased without apollo. Educated pt to cont strengthen L hip and balance to reduce L low back compensation Physical Therapy Plan Next Visit Focus/Plan Next Note Type Treatment Note Next Visit Plan get Oswestry assess post session tolerance L hip strengthening L hip mobility training nerve stretch L glute activation start with cardio machine STM on relaxing L paraspinal, lumbar mobility/ stabilization in supine/ prone position LLE strengthening balance training as yamile HS mobility, hip flexion ex, hip hinge pattern walking program
--- NOTE | 2020-04-23 10:59 | PT.OPDS ---
Current Diagnoses Low back pain (09/28/19) Visit Care Team Role Provider Type Jeremie Cui MD Attending Provider Physician Primary Care Provider Referring Provider Specialty: [facility] Address: [address] [place] [address], [id number] Email: [email or web address] Visit Number Visit Number 12/19 Discharge Summary PT-OP-T Assessment and Plan Start: 09/12/19 12:55 Freq: Status: Active Protocol: Document 04/23/20 10:59 (Rec: 04/23/20 10:59 [email or web address]) Physical Therapy Plan Discharge Physical Therapy Discharge Reasons No Longer Attending PT Discharge Comments Patient did not return call after clinic re-opening, 30+ days. DC from PT today
== END 2020-05-23 08:25 ==
LOC: PHYS 10:30
PROVIDERS: PCP Family Medicine; Referring Provider Family Medicine; Visit Provider Family Medicine
DX: M54.5 Low back pain (principal)
CPT/HCPCS: 97110; 97116; 97140; 97163

== ENCOUNTER → 2020-02-20 11:09 | Outpatient (CLI) | payer MEDICARE, SELFPAY ==
[2018-02-08 14:24] VITALS: BMI 49.8
--- NOTE | 2020-02-20 11:12 | DI.RAD.S_ITS ---
PROCEDURE: XR ELBOW LT MIN 3V INDICATIONS: left elbow pain/injury TECHNIQUE: 3 views of the elbow were acquired. COMPARISON: None. FINDINGS: Bones: No fractures or dislocations. No suspicious bony lesions. Mild to moderate osteoarthritic degenerative changes. 5 millimeter ossification noted in the anterior joint space concerning for intratesticular loose body. Soft tissues: No elbow joint effusion. No suspicious soft tissue calcifications. IMPRESSION: 1. No fracture. No acute osseous lesion. If symptoms and/or clinical suspicion for pathology persists, further assessment with repeat radiographs (7-10 days) or advanced imaging (e.g. CT, MRI or bone scan) may be helpful. 2. Osteoarthritis. 3. Possible 5 millimeter ossified intra-articular loose body. Dictated by: Radha Ambriz MD, PhD on 02/20/2020 at 17:56 Approved by: Radha Ambriz MD, PhD on 02/20/2020 at 17:59
== END ==
PROVIDERS: PCP Family Medicine; Referring Provider Family Medicine; Visit Provider Family Medicine
DX: S59.902A Unspecified injury of left elbow, initial encounter (principal); M25.522 Pain in left elbow; M19.022 Primary osteoarthritis, left elbow; X58.XXXA Exposure to other specified factors, initial encounter
CPT/HCPCS: 73080

== ENCOUNTER → 2020-08-26 10:16 | Outpatient (CLI) | payer MEDICARE, SELFPAY ==
[2020-08-14 14:52] VITALS: BMI 49.8
[2020-08-26 11:46] LABS: Alanine Aminotransferase 43 IU/L (<50); Albumin 4.2 g/dL (3.5-5.0); Albumin Globulin Ratio 1.2 (1.0-2.8); Bilirubin Total 1.1 mg/dL (0.2-1.3); Blood Urea Nitrogen 13 mg/dL (9-20); Calcium 9.8 mg/dL (8.4-10.2); Carbon Dioxide 26 mmol/L (22-32); Chloride 108 mmol/L (98-107); Cholesterol 198 mg/dL (140-199); Estimated Glomerular Filt Rate > 60.0 mL/min (>60); Globulin 3.4 g/dL (1.7-4.1); Glucose 111 mg/dL (80-110); HDL Cholesterol 31 mg/dL (40-60); LDL Cholesterol Calculated 125 mg/dL (<100); Sodium 138 mmol/L (137-145); Triglycerides 211 mg/dL (35-150)
[2020-08-26 11:49] LABS: HEMOLYSIS 155 (0-50)
[2020-08-26 11:50] LABS: Total Protein 7.6 g/dL (6.3-8.2)
== END ==
PROVIDERS: PCP Family Medicine; Referring Provider Family Medicine; Visit Provider Family Medicine
DX: E78.5 Hyperlipidemia, unspecified (principal); I10 Essential (primary) hypertension; I48.91 Unspecified atrial fibrillation
CPT/HCPCS: 36415; 80053; 80061

== ENCOUNTER → 2021-02-17 13:32 | Outpatient (CLI) | payer MEDICARE, SELFPAY ==
[2020-08-14 14:52] VITALS: BMI 49.8
--- NOTE | 2021-02-17 13:35 | DI.RAD.S_ITS ---
PROCEDURE: XR LUMBAR SPINE 2-3V INDICATIONS: chronic back pain TECHNIQUE: 3 views of the lumbar spine were acquired. COMPARISON: [facility], CT, CT LUMBAR SPINE WO CON, 10/11/2018, 12:13. [facility], CR, XR LUMBAR SPINE 2 OR 3 VIEWS, 10/05/2018, 15:34. [facility], CR, XR LUMBAR SPINE 2-3V, 02/08/2018, 8:44. FINDINGS: Bones: Posterior/interbody fusion from the L2 through the S1 level with surgical hardware in intervertebral disc spacers in expected unchanged positions. There is loss of the normal lumbar lordosis. Soft tissues: Overlying bowel gas pattern is normal. No suspicious soft tissue calcifications. Vascular calcifications indicate atherosclerosis. IMPRESSION: Tear/interbody fusion redemonstrated from the L2 through the S1 level with surgical hardware and intervertebral disc spacers in expected positions. Dictated by: Hitesh MOORE Interpreted: Will Taylor MD on 02/17/2021 at 15:09 Transcribed by: KALE on 02/17/2021 at 15:11 Approved by: Will Taylor M.D. on 02/17/2021 at 17:17
[2021-02-17 14:11] LABS: Add Manual Diff / Slide Review NO; Basophils Absolute Auto 100 /uL (0-100); Basophils Percent Auto 0.7 % (0-2); Eosinophils Absolute Auto 300 /uL (0-450); Eosinophils Percent Auto 4.4 % (2-4); Hematocrit 45.1 % (41-53); Hemoglobin 15.3 g/dL (13.5-17.5); Lymphocytes Absolute Auto 2800 /uL (1100-4500); Mean Corpuscular HGB Conc 33.9 % (30-36); Mean Corpuscular Volume 94.2 fL (80-100); Monocytes Absolute Auto 700 /uL (0-900); Monocytes Percent Auto 9.2 % (3-14); Neutrophils Absolute Auto 3700 /uL (1500-7000); Neutrophils Percent Auto 48.7 % (50-75); Platelet Count 122 X10^3/uL (150-400); Red Blood Cell Count 4.78 X10^6/uL (4.5-5.9); Red Cell Distribution Width 13.5 % (11.6-14.8); White Blood Cell Count 7.5 X10^3/uL (4.5-11.0)
[2021-02-17 14:26] LABS: Alanine Aminotransferase 27 IU/L (<50); Albumin 4.2 g/dL (3.5-5.0); Albumin Globulin Ratio 1.2 (1.0-2.8); Alkaline Phosphatase 96 U/L (38-126); Aspartate Aminotransferase 32 IU/L (17-59); BUN Creatinine Ratio 15.1 (6-22); Bilirubin Total 0.5 mg/dL (0.2-1.3); Blood Urea Nitrogen 14 mg/dL (9-20); Calcium 9.7 mg/dL (8.4-10.2); Carbon Dioxide 23 mmol/L (22-32); Chloride 108 mmol/L (98-107); Estimated Glomerular Filt Rate > 60.0 mL/min (>60); Globulin 3.4 g/dL (1.7-4.1); Glucose 94 mg/dL (80-110); HEMOLYSIS 19 (0-50); Hemoglobin A1C% w Est Avg Glu 5.6 % (4.0-6.0); Potassium 4.5 mmol/L (3.4-5.1); Sodium 140 mmol/L (137-145); Total Protein 7.6 g/dL (6.3-8.2)
[2021-02-17 14:54] LABS: TSH w/ Reflex to FT4 0.95 uIU/mL (0.47-4.68)
== END ==
LOC: LAB 13:33 → RAD 13:34
PROVIDERS: PCP Family Medicine; Referring Provider Family Medicine; Visit Provider Family Medicine
DX: M54.5 Low back pain (principal); R20.0 Anesthesia of skin; R20.2 Paresthesia of skin; G89.29 Other chronic pain; Z98.1 Arthrodesis status
CPT/HCPCS: 36415; 72100; 80053; 83036; 84443; 85025

== ENCOUNTER → 2021-08-08 12:13 | Outpatient (CLI) | payer MEDICARE, SELFPAY ==
[2020-08-14 14:52] VITALS: BMI 49.8
[2021-08-08 13:21] LABS: Add Manual Diff / Slide Review NO; Basophils Absolute Auto 0 /uL (0-100); Basophils Percent Auto 0.6 % (0-2); Eosinophils Absolute Auto 300 /uL (0-450); Eosinophils Percent Auto 4.4 % (2-4); Hematocrit 48.8 % (41-53); Hemoglobin 16.8 g/dL (13.5-17.5); Lymphocytes Absolute Auto 3100 /uL (1100-4500); Lymphocytes Percent Auto 39.8 % (25-40); Mean Corpuscular HGB Conc 34.6 % (30-36); Mean Corpuscular Hemoglobin 32.5 PG (26-34); Mean Corpuscular Volume 94.1 fL (80-100); Monocytes Absolute Auto 600 /uL (0-900); Monocytes Percent Auto 7.6 % (3-14); Neutrophils Absolute Auto 3700 /uL (1500-7000); Neutrophils Percent Auto 47.6 % (50-75); Platelet Count 161 X10^3/uL (150-400); Red Blood Cell Count 5.18 X10^6/uL (4.5-5.9); Red Cell Distribution Width 13.7 % (11.6-14.8); White Blood Cell Count 7.8 X10^3/uL (4.5-11.0)
[2021-08-08 13:52] LABS: Alanine Aminotransferase 37 IU/L (<50); Albumin 4.7 g/dL (3.5-5.0); Albumin Globulin Ratio 1.2 (1.0-2.8); Alkaline Phosphatase 89 U/L (38-126); Aspartate Aminotransferase 37 IU/L (17-59); BUN Creatinine Ratio 12.1 (6-22); Bilirubin Total 0.8 mg/dL (0.2-1.3); Blood Urea Nitrogen 12 mg/dL (9-20); Calcium 10.6 mg/dL (8.4-10.2); Carbon Dioxide 29 mmol/L (22-32); Chloride 105 mmol/L (98-107); Cholesterol 204 mg/dL (140-199); Estimated Glomerular Filt Rate > 60.0 mL/min (>60); Globulin 3.9 g/dL (1.7-4.1); Glucose 97 mg/dL (80-110); HDL Cholesterol 36 mg/dL (40-60); HEMOLYSIS < 15 (0-50); LDL Cholesterol Calculated 99 mg/dL (<100); Potassium 4.3 mmol/L (3.4-5.1); Sodium 143 mmol/L (137-145); Total Protein 8.6 g/dL (6.3-8.2); Triglycerides 346 mg/dL (35-150)
[2021-08-08 14:20] LABS: Prostate Specific Antigen Scrn 1.35 ng/mL (0.1-4.0)
== END ==
PROVIDERS: PCP Family Medicine; Referring Provider Family Medicine; Visit Provider Family Medicine
DX: I10 Essential (primary) hypertension (principal); E78.5 Hyperlipidemia, unspecified; Z12.5 Encounter for screening for malignant neoplasm of prostate; G89.4 Chronic pain syndrome; J44.9 Chronic obstructive pulmonary disease, unspecified; M43.10 Spondylolisthesis, site unspecified; Z98.1 Arthrodesis status
CPT/HCPCS: 36415; 80053; 80061; 85025; G0103

== ENCOUNTER 2022-04-04 19:03 | Emergency (ER) | payer MEDICARE, SELFPAY ==
[2020-08-14 14:52] VITALS: BMI 49.8
[2022-04-04 19:05] VITALS: BP 139/83; PULSE 104; RESP 22; TEMP 36.4; O2SAT 97; BMI 49.1
--- NOTE | 2022-04-04 19:25 | ED.EXTPRO ---
HPI - Extremity Problem General Chief complaint: Extremity Problem,Nontraumatic Stated complaint: Left leg injury Time Seen by Provider: 04/04/22 19:04 Source: patient Mode of arrival: Ambulatory History of Present Illness HPI Narrative: 61-year-old male former smoker with history of hypertension, hyperlipidemia, prior clot, BMI 49 presents with family in the chief complaint of pain in his left leg including behind the knee and even up into his thigh over the past few days. He denies any obvious injury and has had no fever or chills. He states the pain is worse when he moves or presses on it but is otherwise well and free of complaint. He denies any chest pain, shortness of breath, nausea, vomiting or diarrhea. He is not dizzy nor weak or lightheaded. Related Data Home Medications Medication Instructions Recorded Confirmed cholecalciferol (vitamin D3) 25 1 tab PO DAILY ##0 09/29/16 02/10/22 mcg (1,000 unit) tablet (Vitamin D3) diphenhydramine HCl 25 mg tablet 2 tab PO BEDTIME sleep ##0 09/29/16 02/10/22 (Benadryl Allergy) [id number] acid 0.4 1 tab PO DAILY ##0 09/29/16 02/10/22 mg-lycopene 300 mcg-lutein 250 mcg tablet (Centrum Silver) vitamin B complex (B 1 tab PO DAILY ##0 09/29/16 02/10/22 Complex-Vitamin B12 tablet) aspirin 325 mg tablet 325 mg PO DAILY 08/08/21 02/10/22 Previous Rx's Medication Instructions Recorded docusate sodium 100 mg capsule 100 mg PO BID #60 caps 02/11/18 walker #1 ea 02/11/18 miscellaneous medical supply #1 ea 05/04/19 hydroxyzine HCl 50 mg tablet 50 mg PO .2-4 hours PRN anxiety #4 05/08/20 tabs colchicine 0.6 mg tablet 0.6 mg PO DAILY PRN gout pain #30 08/22/20 tabs albuterol sulfate 90 mcg/actuation 2 puff inhalation Q6H PRN 04/10/21 aerosol inhaler (Ventolin HFA) shortness of breath #6.7 grams metoprolol tartrate 50 mg tablet 50 mg PO BID #180 tabs 01/26/22 hydrocodone 7.5 mg-acetaminophen 2 tab PO Q8H PRN pain #90 tabs 03/31/22 325 mg tablet apixaban 5 mg (74 tabs) tablets in 5 mg PO BID #74 ea 04/04/22 a dose pack (Eliquis DVT-PE Treat 30D Start) Allergies Allergy/AdvReac Type Severity Reaction Status Date / Time Penicillins [PENICILLINS] Allergy Mild RASH Verified 04/04/22 19:10 Review of Systems Review of Systems Narrative: GENERAL: Denies chills, fatigue, malaise, fever, sweats. HEENT: Denies sinus pain, ear pain, sore throat, difficulty swallowing, dizziness. RESPIRATORY: Denies dyspnea, cough, wheezing, hemoptysis, sputum. CARDIOVASCULAR: Denies chest pain, palpitations, orthopnea, edema, GASTROINTESTINAL: Denies nausea, vomiting, abdominal pain, diarrhea, constipation, melena. : Denies dysuria, frequency, incontinence, hematuria, urinary retention. MUSCULOSKELETAL: See HPI SKIN: Denies rash, skin lesions, or other NEUROLOGIC: Denies weakness, headache, numbness, change in speech, confusion, seizures, incoordination. PSYCHIATRIC: No concerning psychosocial issues. 12 point review of systems is negative except for those stated above Patient History Medical History Anxiety Arthritis Arthritis of left elbow Asthma Chronic pain syndrome COPD (chronic obstructive pulmonary disease) Gout HTN (hypertension) Hyperlipidemia Kidney stones Numbness and tingling of both feet Numbness and tingling of both legs Sepsis Sleep apnea with use of continuous positive airway pressure (CPAP) Trigger finger, right Surgical History History of back surgery History of bilateral carpal tunnel release History of lumbar fusion Hx of hand surgery Hx of repair of right rotator cuff Status post rotator cuff repair Family History Sister Age: 55 MS (multiple sclerosis) Social History household members: family and none Smoking Status: Former smoker alcohol intake: current Smoking Status: Former smoker alcohol intake frequency: a few times a week Substance Use Type: does not use Exam Narrative Exam Narrative: GENERAL: [61] year old patient appears stated age. Well-developed patient, in mild distress. HEAD: Atraumatic. Normocephalic. EYES: Pupils equal round and reactive. Extraocular motions intact. No scleral icterus. No injection or drainage. ENT: Nose without bleeding, purulent drainage. Throat without erythema, tonsillar hypertrophy or exudate. Airway patent. NECK: Trachea midline. Non tender CARDIOVASCULAR: Regular rate and rhythm without murmurs, gallops, or rubs. RESPIRATORY: Clear to auscultation. Breath sounds equal bilaterally. No wheezes, rales, or rhonchi. GASTROINTESTINAL: Abdomen soft, non-tender, nondistended. EXTREMITIES: Left lower extremity with minimal edema, tenderness to palpate in posterior calf, popliteal fossa and medial thigh. No obvious significant external manifestation of disease or injury. Cap refill intact, sensation intact, increased pain with passive dorsiflexion at the ankle BACK: Nontender without deformity or crepitance. No flank tenderness. NEURO: AOx3. SKIN: No rash or erythema of visible areas Initial Vital Signs Initial Vital Signs: Vital Signs Temperature 97.5 F L 04/04/22 19:05 Pulse Rate 104 H 04/04/22 19:05 Respiratory Rate 22 04/04/22 19:05 Blood Pressure 139/83 04/04/22 19:05 Pulse Oximetry 97 04/04/22 19:05 Oxygen Delivery Method 04/04/22 19:05 Course Orders Ordered: ED Orders 04/04/22 19:39 US periph venous low extrem lt Stat Discontinued Medications Apixaban (Apixaban 5 Mg Tablet) 5 mg PO NOW ONE Stop: 04/04/22 20:46 Last Admin: 04/04/22 21:08 Dose: 5 mg Documented By: CRISS Vital Signs Vital signs: Vital Signs - 8 hr 04/04/22 19:05 Temperature 97.5 F L Pulse Rate 104 H Respiratory Rate 22 Blood Pressure 139/83 Pulse Oximetry 97 Oxygen Delivery Method Room Air MDM - Extremity (Nontraumatic) Imaging Data US - DVT: Radiologist's Impression: [address] [address] Ultrasound Report Signed Patient: Robson Moss MR#: [id number] : 1960 Acct:[id number] Age/Sex: 61 / M Date of Service: 04/04/22 Loc: ED Accession Number: [id number] ?? Procedure: US periph venous low extrem lt Ordering Provider: Brayden Higgins D.O. PROCEDURE:? US PERIPH VENOUS LOW EXTREM LT ? INDICATIONS:? pain, swelling, no injury ? TECHNIQUE:? Real-time imaging, as well as color and pulse Doppler interrogation, were performed of the lower extremity deep veins from the inguinal ligament to the popliteal fossa.? ? COMPARISON:? None. ? FINDINGS:? There is thrombosis involving the superficial femoral vein and the popliteal vein and the posterior tibial veins, occlusive and therefore likely acute.? ? IMPRESSION:? Acute thrombosis involving the left lower extremity venous system as discussed above, deep venous system. ? ? Dictated by: Will Taylor M.D. on 04/04/2022 at 20:28 ? ? Approved by: Will Taylor M.D. on 04/04/2022 at 20:30 ? Discharge Plan Departure Patient Disposition: Home Clinical Impression: DVT (deep venous thrombosis) Instructions: Deep Vein Thrombosis Activity Restrictions/Additional Instructions: *You have been diagnosed with [left lower extremity deep vein thrombus] *What to do: *Please continue to take your regular medications as directed. [x ] New medication prescriptions sent to your pharmacy: [ [facility]] [ ] New medication written as a paper prescription [ ] No new medications given *Please follow up with your primary care provider in 2-3 days, call for an appointment. Let them know you were seen in the Emergency Department and that we ask that you be seen in follow up. We will electronically transmit a record of today's note if your PCP is in our system *If you do not have a primary care provider please contact the [facility] Resource line at [phone]. They will ask some questions about your medical history and help get you set up with a doctor in the community. *Return to Emergency Department if you should have any new, worsening or concerning symptoms, such as [fever greater than 101 F, shaking chills, worsening pain, persistent vomiting or other bothersome symptoms] . Prescriptions: New Eliquis DVT-PE Treat 30D Start 5 mg (74 tabs) tablets,dose pack 5 mg PO BID Qty: 74 0RF No Action cholecalciferol (vitamin D3) [Vitamin D3] 1,000 UNIT tablet 1 tab PO DAILY Qty: 0 vitamin B complex [B Complex-Vitamin B12] 1 EACH tablet 1 tab PO DAILY Qty: 0 diphenhydramine HCl [Benadryl Allergy] 25 MG tablet 2 tab PO BEDTIME Qty: 0 qzvxamaa-ner-KE-lycopen-lutein [Centrum Silver] 0.4-300-250 mg-mcg-mcg Tablet 1 tab PO DAILY Qty: 0 hydroxyzine HCl 50 mg tablet 50 mg PO .2-4 hours PRN (Reason: anxiety) Qty: 4 0RF Rx Instructions: Take 1 tab 2-4 hours prior to MRI albuterol sulfate [Ventolin HFA] 90 mcg/actuation HFA aerosol inhaler 2 puff INHALATION Q6H PRN (Reason: shortness of breath) Qty: 6.7 2RF metoprolol tartrate 50 mg tablet 50 mg PO BID Qty: 180 1RF hydrocodone-acetaminophen 7.5-325 mg tablet 2 tab PO Q8H PRN (Reason: pain) Qty: 90 0RF Rx Instructions: must last 2 weeks aspirin 325 mg tablet 325 mg PO DAILY (DME) miscellaneous medical supply Misc See Rx Instructions .ROUTE .MEDSUPPLY Qty: 1 0RF Rx Instructions: Disabled Parking Permit colchicine 0.6 mg tablet 0.6 mg PO DAILY PRN (Reason: gout pain) Qty: 30 0RF docusate sodium 100 mg Capsule 100 mg PO BID Qty: 60 0RF [facility]ME[facility] See Dose Instructions .ROUTE .MEDSUPPLY Qty: 1 0RF Dose Instruction: As directed Rx Instructions: As directed Referrals: Jemal Villar MD [Primary Care Provider] - Visit Report Forms: Patient Portal/API
--- NOTE | 2022-04-04 19:32 | PC.NURSE ---
pt c/o pain in the calf in the left leg no redness area is painful to touch pt states he has a hx of afib but is not on a blood thinner, pt does admit to having a previous clot states a hundred years ago when I had my first back surgery I had a blood clot in my heart
--- NOTE | 2022-04-04 19:39 | DI.US.S_ITS ---
PROCEDURE: US PERIPH VENOUS LOW EXTREM LT INDICATIONS: pain, swelling, no injury TECHNIQUE: Real-time imaging, as well as color and pulse Doppler interrogation, were performed of the lower extremity deep veins from the inguinal ligament to the popliteal fossa. COMPARISON: None. FINDINGS: There is thrombosis involving the superficial femoral vein and the popliteal vein and the posterior tibial veins, occlusive and therefore likely acute. IMPRESSION: Acute thrombosis involving the left lower extremity venous system as discussed above, deep venous system. Dictated by: Will Taylor M.D. on 04/04/2022 at 20:28 Approved by: Will Taylor M.D. on 04/04/2022 at 20:30
[2022-04-04] MEDS: APIXABAN 5 MG TABLET PO (21:08)
== END 2022-04-04 21:12 | disposition home or self-care (01) ==
PROVIDERS: Emergency Provider Emergency Medicine; PCP Family Medicine
DX: I82.402 Acute embolism and thrombosis of unspecified deep veins of left lower extremity (principal)
CPT/HCPCS: 93971; 99283

== ENCOUNTER → 2022-09-24 09:58 | Outpatient (CLI) | payer MEDICARE, SELFPAY ==
[2022-04-07 16:02] VITALS: BMI 49.8
--- NOTE | 2022-09-24 10:00 | DI.RAD.S_ITS ---
PROCEDURE: XR HAND LT MIN 3V INDICATIONS: foreign object in hand TECHNIQUE: Three views of the hand(s) acquired. COMPARISON: None. FINDINGS: Bones: No fractures or dislocations. Carpal bones are normally aligned. No suspicious bony lesions. Soft tissues: There is a metallic foreign body which may be part of a snap in the thenar eminence. This appears to be situated about 3 mm below the skin surface. No suspicious soft tissue gas. IMPRESSION: Foreign body in the thenar eminence just below the skin surface. Dictated by: Sylwia Curry M.D. on 09/24/2022 at 13:55 Approved by: Sylwia Curry M.D. on 09/24/2022 at 13:57
[2022-09-24 11:03] LABS: Add Manual Diff / Slide Review NO; Basophils Absolute Auto 0 /uL (0-100); Basophils Percent Auto 0.6 % (0-2); Eosinophils Absolute Auto 300 /uL (0-450); Eosinophils Percent Auto 4.7 % (2-4); Hematocrit 48.1 % (41-53); Hemoglobin 16.2 g/dL (13.5-17.5); Lymphocytes Absolute Auto 2700 /uL (1100-4500); Lymphocytes Percent Auto 40.2 % (25-40); Mean Corpuscular HGB Conc 33.6 % (30-36); Mean Corpuscular Hemoglobin 31.4 PG (26-34); Mean Corpuscular Volume 93.5 fL (80-100); Monocytes Absolute Auto 600 /uL (0-900); Monocytes Percent Auto 8.8 % (3-14); Neutrophils Absolute Auto 3000 /uL (1500-7000); Neutrophils Percent Auto 45.7 % (50-75); Platelet Count 126 X10^3/uL (150-400); Red Blood Cell Count 5.14 X10^6/uL (4.5-5.9); Red Cell Distribution Width 13.7 % (11.6-14.8); White Blood Cell Count 6.7 X10^3/uL (4.5-11.0)
[2022-09-24 11:21] LABS: Alanine Aminotransferase 37 IU/L (<50); Albumin 4.5 g/dL (3.5-5.0); Albumin Globulin Ratio 1.2 (1.0-2.8); Alkaline Phosphatase 80 U/L (38-126); Aspartate Aminotransferase 36 IU/L (17-59); BUN Creatinine Ratio 13.3 (6-22); Bilirubin Total 0.9 mg/dL (0.2-1.3); Blood Urea Nitrogen 13 mg/dL (9-20); Calcium 9.9 mg/dL (8.4-10.2); Carbon Dioxide 26 mmol/L (22-32); Chloride 102 mmol/L (98-107); Cholesterol 209 mg/dL (140-199); Estimated Glomerular Filt Rate > 60 mL/min (>60); Globulin 3.8 g/dL (1.7-4.1); Glucose 103 mg/dL (80-110); HDL Cholesterol 36 mg/dL (40-60); HEMOLYSIS 34 (0-50); LDL Cholesterol Calculated 120 mg/dL (<100); Potassium 4.5 mmol/L (3.4-5.1); Sodium 139 mmol/L (137-145); Total Protein 8.3 g/dL (6.3-8.2); Triglycerides 266 mg/dL (35-150)
[2022-09-24 11:51] LABS: Prostate Specific Antigen Scrn 1.78 ng/mL (0.1-4.0)
[2022-09-24 15:30] LABS: Creatinine Urine Random 184.6 mg/dL
[2022-09-24 15:37] LABS: Microalbumi Creatinin Ratio Ur 8.1 ug/mg CR (<30); Microalbumin Urine Random 1.5 mg/dL (0-1.6)
[2022-09-25 16:17] LABS: Calcium 9.3 mg/dL (8.6-10.2); Parathyroid Hormone, Intact 32 pg/mL (15-65)
== END ==
LOC: RAD 10:00
PROVIDERS: PCP Family Medicine; Referring Provider Family Medicine; Visit Provider Family Medicine
DX: S60.552A Superficial foreign body of left hand, initial encounter; Z12.5 Encounter for screening for malignant neoplasm of prostate; E78.2 Mixed hyperlipidemia; I10 Essential (primary) hypertension; I48.91 Unspecified atrial fibrillation; J44.9 Chronic obstructive pulmonary disease, unspecified; M54.50 Low back pain, unspecified; G89.4 Chronic pain syndrome; Z98.1 Arthrodesis status
CPT/HCPCS: 36415; 73130; 80053; 80061; 82043; 82310; 82570; 83970; 84443; 85025; G0103

== ENCOUNTER → 2022-10-19 09:16 | Outpatient (CLI) | payer MEDICARE, SELFPAY ==
[2022-04-07 16:02] VITALS: BMI 49.8
--- NOTE | 2022-10-19 09:18 | DI.ECHO.S_ITS ---
[facility] +---------+ : : [address] : : : : [id number] : : : : Phone: [phone]+ Echocardiogram Report + + :Name: ANANYA HUNTER Study Date: 10/19/2022 Height: 73 in : :[facility] ReadingLocation: Weight: 373 lb : : Gender: Male BSA: 2.8 m2 : :: 1960 Age: 62 yrs BP: 142/78 mmHg: :Reason For Study: CHRONIC ATRIAL FIBRILLATION, HYPERTENSION : :Ordering Physician: RAFAELA, : :ISMAEL Performed By: Erika Mercado : :Referring: ISMAEL RUSSO : + + Interpretation Summary Left ventricular ejection fraction is estimated to be 45 +/- 5%. There is mild global hypokinesis of the left ventricle. There are no obvious focal wall motion abnormalities noted but poor endocardial definition reduces the sensitivity for the detection of such. There is no significant valvular heart disease. Procedure: A two-dimensional transthoracic echocardiogram with color flow and Doppler was performed. The study quality was technically difficult. A contrast injection of Definity was performed to improve assessment of LV function. Contrast was injected into an intravenous site in the left arm. The patient was in atrial fibrillation with heart rates between 77-101 bpm during the exam. Left Ventricle: The left ventricle is mildly dilated. There is normal left ventricular wall thickness. Left ventricular ejection fraction is estimated to be 45 +/- 5%. There is mild global hypokinesis of the left ventricle. There are no obvious focal wall motion abnormalities noted but poor endocardial definition reduces the sensitivity for the detection of such. Diastolic function could not be accurately assessed due to atrial fibrillation. Right Ventricle: The right ventricle is not well visualized. The right ventricular systolic function is normal. Atria: The left atrial size is normal. Right atrial size is normal. There is no Doppler evidence for an interatrial shunt. Mitral Valve: The mitral valve is normal in structure and function. There is trace mitral regurgitation. Aortic Valve: The aortic valve is trileaflet. The aortic valve opens well. There is no aortic valve stenosis. No aortic regurgitation is present. Tricuspid Valve: The tricuspid valve is normal in structure and function. There is mild tricuspid regurgitation. Right ventricular systolic pressure is estimated to be 19 mmHg plus the clinically estimated CVP which cannot be estimated on this exam. Pulmonic Valve: The pulmonic valve is not well visualized. There is mild pulmonic regurgitation. Great Vessels: The aortic root is borderline dilated. The ascending aorta is at the upper limits of normal in size. The inferior vena cava was not well visualized. Pericardium/ Pleura There is no pericardial effusion. There is an anterior echo-free space consistent with a fat pad. There is no pleural effusion. MMode/2D Measurements & Calculations LVIDd: 6.4 cm LVOT diam: 2.2 cm LVIDs: 5.0 cm Ao root diam: 4.0 cm FS: 22.3 % asc Aorta Diam: 3.9 cm IVSd: 0.90 cm LVPWd: 0.84 cm LV rodriguez. diameter/BSA (cm/m^2): 2.3 LV sys. diameter/BSA (cm/m^2): 1.8 LA A2 area: 25.1 cm2 RA long axis: 5.9 cm LA A4 area: 27.3 cm2 RA area: 24.9 cm2 LA length (vol): 7.8 cm RA vol: 89.6 ml LA vol: 74.9 ml RA : 32.0 ml/m2 LA vol index: 26.7 ml/m2 IVC diam: 2.2 cm TAPSE: 1.9 cm Doppler Measurements & Calculations Ao V2 max: 100.9 cm/sec LVOT Max Mark: 66.7 cm/sec Ao V2 mean: 76.8 cm/sec LV V1 max P.8 mmHg Ao max P.1 mmHg LV V1 VTI: 12.4 cm Ao mean P.5 mmHg GAGE(I,D): 2.6 cm2 Ao V2 VTI: 18.8 cm GAGE(V,D): 2.6 cm2 sev ratio: 0.66 GAGE indexed to BSA (cm^2/m^2): 0.91 MV E max mark: 91.2 cm/sec TR max mark: 216.6 cm/sec MV A max mark: 1.1 cm/sec TR max P.8 mmHg MV E/A: 86.3 PA V2 max: 88.3 cm/sec Med Peak E' Mark: 7.9 cm/sec PA V2 mean: 63.3 cm/sec E/E' med: 11.5 PA mean P.8 mmHg Lat Peak E' Mark: 13.8 cm/sec PA pr(Accel): 51.6 mmHg E/E' lat: 6.6 E/e' average: 9.1 MV dec time: 0.14 sec SVLVOT): 48.2 ml Reading Physician:02:23 PM
== END ==
LOC: ECHO 09:18
PROVIDERS: PCP Family Medicine; Referring Provider Family Medicine; Visit Provider Family Medicine
DX: I37.1 Nonrheumatic pulmonary valve insufficiency (principal); I48.91 Unspecified atrial fibrillation; I07.1 Rheumatic tricuspid insufficiency; I10 Essential (primary) hypertension
CPT/HCPCS: 93306; Q9957

== ENCOUNTER → 2023-05-12 10:10 | Outpatient (CLI) | payer MEDICARE, SELFPAY ==
[2022-04-07 16:02] VITALS: BMI 49.8
--- NOTE | 2023-05-14 14:32 | DI.NM.S_ITS ---
DATE OF SERVICE: 05/13/2023 STUDY: Pharmacological perfusion study. INDICATIONS: Cchronic AFib, mild LV dysfunction, hypertension, hyperlipidemia. RADIOPHARMACEUTICAL: 25.7 millicuries technetium-99m Myoview IV was injected at stress and 27.3 millicuries technetium-99m Myoview IV was injected at rest. CARDIAC STRESS: The patient underwent IV Lexiscan perfusion study under the supervision of the attending staff. The patient remained hemodynamically stable. No significant symptoms. Resting blood pressure 122/88 and heart rate 84. Baseline rhythm AFib. During stress no new convincing ischemic changes. Nonspecific ST changes. The patient remained in Afib. RAW DATA: There is increased subdiaphragmatic activity. The patient's weight is 380 pounds. GATED STUDY: Stress LV ejection fraction 63% without any obvious wall motion abnormalities. Resting end-diastolic volume 166 mL suggestive of dilated LV. TID ratio normal 1.10. Lung/heart ratio 0.47, which is abnormal. It suggests elevated LV filling pressure. MYOCARDIAL PERFUSION SCAN: There are no prone images. Stress supine, resting supine images were compared to each other. There is normal myocardial perfusion. CONCLUSION: This is a normal myocardial perfusion study. Preserved left ventricular function with LV ejection fraction 63%. Abnormal lung heart ratio suggestive of elevated LV filling pressure. Correlate clinically with 2D echo to make sure there is no valvular pathology or diastolic dysfunction. The patient has underlying rhythm atrial fibrillation. As far as perfusion scan is concerned, this is a low-risk myocardial perfusion scan. Robson Moss - ZUAIR/rishi/elsa doc#: [id number]/job#: [id number] dd: 05/14/2023 12:47:00 dt: 05/14/2023 14:25:00 DICTATING MD/COPIES TO: Gifty White MD COPIES MNE: MELANY;
== END ==
LOC: NUCM 10:11
PROVIDERS: PCP Family Medicine; Referring Provider Internal Medicine Cardiovascular Disease; Visit Provider Internal Medicine Cardiovascular Disease
DX: I42.9 Cardiomyopathy, unspecified (principal)
CPT/HCPCS: 78452; 93017; A9502; J2785

== ENCOUNTER → 2023-12-06 15:50 | Outpatient (CLI) | payer MEDICARE, SELFPAY ==
[2022-04-07 16:02] VITALS: BMI 49.8
[2023-12-06 16:39] LABS: Add Manual Diff / Slide Review NO; Basophils Absolute Auto 0 /uL (0-100); Basophils Percent Auto 0.4 % (0-2); Eosinophils Absolute Auto 300 /uL (0-450); Eosinophils Percent Auto 3.5 % (2-4); Hemoglobin 15.7 g/dL (13.5-17.5); Lymphocytes Absolute Auto 2700 /uL (1100-4500); Lymphocytes Percent Auto 35.7 % (25-40); Mean Corpuscular HGB Conc 34.1 % (30-36); Mean Corpuscular Hemoglobin 31.9 PG (26-34); Mean Corpuscular Volume 93.7 fL (80-100); Monocytes Absolute Auto 600 /uL (0-900); Monocytes Percent Auto 8.5 % (3-14); Neutrophils Absolute Auto 4000 /uL (1500-7000); Neutrophils Percent Auto 51.9 % (50-75); Platelet Count 124 X10^3/uL (150-400); Red Blood Cell Count 4.91 X10^6/uL (4.5-5.9); Red Cell Distribution Width 13.7 % (11.6-14.8); White Blood Cell Count 7.6 X10^3/uL (4.5-11.0)
== END ==
PROVIDERS: PCP Family Medicine; Referring Provider Family Medicine; Visit Provider Family Medicine
DX: I10 Essential (primary) hypertension (principal); I48.91 Unspecified atrial fibrillation; E78.2 Mixed hyperlipidemia
CPT/HCPCS: 36415; 85025

== ENCOUNTER → 2024-02-26 10:48 | Outpatient (CLI) | payer MEDICARE, SELFPAY ==
[2022-04-07 16:02] VITALS: BMI 49.8
[2024-02-26 12:20] LABS: BUN Creatinine Ratio 15.2 (6-22); Blood Urea Nitrogen 16 mg/dL (9-20); Calcium 9.6 mg/dL (8.4-10.2); Carbon Dioxide 24 mmol/L (22-32); Chloride 107 mmol/L (98-107); Estimated Glomerular Filt Rate > 60 mL/min (>60); Glucose 107 mg/dL (80-110); HEMOLYSIS < 15 (0-50); Potassium 4.5 mmol/L (3.4-5.1); Sodium 140 mmol/L (137-145)
== END ==
PROVIDERS: PCP Family Medicine; Referring Provider Internal Medicine Cardiovascular Disease; Visit Provider Internal Medicine Cardiovascular Disease
DX: I10 Essential (primary) hypertension (principal)
CPT/HCPCS: 36415; 80048

== ENCOUNTER → 2024-04-08 10:30 | Outpatient (CLI) | payer MEDICARE, SELFPAY ==
[2022-04-07 16:02] VITALS: BMI 49.8
[2024-04-08 11:37] LABS: Add Manual Diff / Slide Review NO; Basophils Absolute Auto 0 /uL (0-100); Basophils Percent Auto 0.4 % (0-2); Eosinophils Absolute Auto 100 /uL (0-450); Eosinophils Percent Auto 1.8 % (2-4); Hematocrit 45.4 % (41-53); Hemoglobin 15.2 g/dL (13.5-17.5); Lymphocytes Absolute Auto 2800 /uL (1100-4500); Lymphocytes Percent Auto 34.9 % (25-40); Mean Corpuscular HGB Conc 33.5 % (30-36); Mean Corpuscular Hemoglobin 31.3 PG (26-34); Mean Corpuscular Volume 93.2 fL (80-100); Monocytes Absolute Auto 600 /uL (0-900); Monocytes Percent Auto 7.8 % (3-14); Neutrophils Absolute Auto 4400 /uL (1500-7000); Neutrophils Percent Auto 55.1 % (50-75); Platelet Count 99 X10^3/uL (150-400); Red Blood Cell Count 4.86 X10^6/uL (4.5-5.9); Red Cell Distribution Width 14.5 % (11.6-14.8)
[2024-04-08 11:53] LABS: Alanine Aminotransferase 25 IU/L (<50); Albumin 4.3 g/dL (3.5-5.0); Albumin Globulin Ratio 1.6 (1.0-2.8); Alkaline Phosphatase 73 U/L (38-126); Aspartate Aminotransferase 28 IU/L (17-59); BUN Creatinine Ratio 22.7 (6-22); Bilirubin Total 0.9 mg/dL (0.2-1.3); Blood Urea Nitrogen 22 mg/dL (9-20); Calcium 9.2 mg/dL (8.4-10.2); Carbon Dioxide 24 mmol/L (22-32); Chloride 106 mmol/L (98-107); Cholesterol 135 mg/dL (140-199); Estimated Glomerular Filt Rate > 60 mL/min (>60); Globulin 2.7 g/dL (1.7-4.1); Glucose 94 mg/dL (80-110); HDL Cholesterol 43 mg/dL (40-60); HEMOLYSIS 25 (0-50); LDL Cholesterol Calculated 56 mg/dL (<100); Potassium 4.5 mmol/L (3.4-5.1); Sodium 138 mmol/L (137-145); Triglycerides 180 mg/dL (35-150)
[2024-04-08 13:20] LABS: Creatinine Urine Random 263.26 mg/dL
[2024-04-08 13:23] LABS: Microalbumin Urine Random 6.4 mg/dL (0-1.6)
[2024-04-09 08:10] LABS: Apolipoprotein B 64 mg/dL (<90)
[2024-04-10 17:45] LABS: Hep C Virus Ab w/Reflex Quant NEGATIVE s/c (NEGATIVE)
== END ==
LOC: LAB 10:32
PROVIDERS: PCP Family Medicine; Referring Provider Physician Assistant; Visit Provider Physician Assistant
DX: Z12.5 Encounter for screening for malignant neoplasm of prostate (principal); I42.9 Cardiomyopathy, unspecified; I10 Essential (primary) hypertension; D68.69 Other thrombophilia; D84.81 Immunodeficiency due to conditions classified elsewhere; J44.9 Chronic obstructive pulmonary disease, unspecified; I48.91 Unspecified atrial fibrillation; M54.50 Low back pain, unspecified; Z68.43 Body mass index [BMI] 50.0-59.9, adult
CPT/HCPCS: 36415; 80053; 80061; 82043; 82172; 82570; 85025; 86803; G0103

== ENCOUNTER → 2024-05-06 10:51 | Outpatient (CLI) | payer MEDICARE, SELFPAY ==
[2022-04-07 16:02] VITALS: BMI 49.8
--- NOTE | 2024-05-06 10:52 | DI.RAD.S_ITS ---
PROCEDURE: XR LUMBAR SPINE MIN 4V INDICATIONS: worsening low back pain with left-sided radiculopathy TECHNIQUE: 5 views of the lumbar spine were acquired, including bilateral oblique views. COMPARISON: [facility], , XR LUMBAR SPINE 2-3V, 02/17/2021, 13:58. FINDINGS: Bones: 5 nonrib-bearing vertebrae are present. Posterior and interbody surgical fusion extending from L2 through S1, without hardware complication. Bulky osseous fusion at L4 through S1 and marginal osteophytes at L2-3. Moderate disc height loss at L1-2. Soft tissues: Overlying bowel gas pattern is normal. No suspicious soft tissue calcifications. Oblique images: No pars defects. IMPRESSION: Posterior and interbody surgical fusion of L2 through S1, without hardware complication. Dictated by: Carl Eller M.D. on 05/07/2024 at 18:55 Approved by: Carl Eller M.D. on 05/07/2024 at 18:56
--- NOTE | 2024-05-06 10:52 | DI.MRI.S_ITS ---
PROCEDURE: MR LUMBAR SPINE WO CON INDICATIONS: worsening low back pain with left-sided radiculopathy TECHNIQUE: Noncontrast sagittal T1 spin echo and T2 fast echo, sagittal STIR, and T2 fast spin echo through the lumbar spine. In cases with scoliosis, additional coronal T2 fast spin echo may be performed. COMPARISON: CT, CT LUMBAR SPINE WO CON, 10/11/2018, 12:13. FINDINGS: Image quality: Excellent. Alignment and Curvature: There is posterior fusion from L2 through S1. Overall lumbar straightening. There is trace retrolisthesis of L5 on S1. Bone Marrow: Marrow is of normal overall signal. No acute vertebral body compression fractures. Spinal Cord: Conus medullaris terminates at the L1 level. Visualized cord demonstrates normal signal and size. Paraspinous Soft Tissues: No paravertebral masses. T12-L1: Minimal disc bulge with mild to moderate spinal stenosis. Mild left and minimal right foraminal narrowing. Significant epidural lipomatosis is present. Facet and ligamentum flavum hypertrophy are present. L1-L2: Mild disc bulge with moderate spinal stenosis. Minimal left foraminal narrowing. Prominent epidural lipomatosis. Facet and ligamentum flavum hypertrophy are present. L2-L3: No disc bulge or spinal stenosis. Mild bilateral foraminal narrowing with facet hypertrophy. L3-L4: Postsurgical changes are present. No spinal stenosis. Moderate left foraminal narrowing with facet hypertrophy. L4-L5: Postsurgical changes are present. No spinal stenosis. Minimal to mild bilateral foraminal narrowing with facet hypertrophy. L5-S1: Postsurgical changes are present. Mild spinal stenosis. No foraminal narrowing. IMPRESSION: Multilevel postsurgical changes. Spinal stenosis is most prominent at L1-2 secondary to disc bulge with contributing effect of epidural lipomatosis. Moderate foraminal narrowing L3-4. Dictated by: Tatiana Sagastume M.D. on 05/08/2024 at 13:52 Approved by: Tatiana Sagastume M.D. on 05/08/2024 at 14:21
== END ==
LOC: MRI 10:51
PROVIDERS: PCP Family Medicine; Referring Provider Family Medicine; Visit Provider Family Medicine
DX: M51.16 Intervertebral disc disorders with radiculopathy, lumbar region (principal); M48.061 Spinal stenosis, lumbar region without neurogenic claudication; G89.4 Chronic pain syndrome; Z98.1 Arthrodesis status
CPT/HCPCS: 72110; 72148

== ENCOUNTER → 2024-09-02 11:08 | Outpatient (CLI) | payer MEDICARE, SELFPAY ==
[2022-04-07 16:02] VITALS: BMI 49.8
[2024-09-02 13:36] LABS: BUN Creatinine Ratio 16.3 (6-22); Blood Urea Nitrogen 16 mg/dL (9-20); Calcium 10.2 mg/dL (8.4-10.2); Carbon Dioxide 25 mmol/L (22-32); Chloride 106 mmol/L (98-107); Estimated Glomerular Filt Rate > 60 mL/min (>60); Glucose 102 mg/dL (80-110); HEMOLYSIS 30 (0-50); Potassium 4.6 mmol/L (3.4-5.1); Sodium 138 mmol/L (137-145)
== END ==
PROVIDERS: PCP Family Medicine; Referring Provider Physician Assistant; Visit Provider Physician Assistant
DX: I42.9 Cardiomyopathy, unspecified (principal)
CPT/HCPCS: 36415; 80048

== ENCOUNTER → 2025-04-16 13:41 | Outpatient (CLI) | payer MEDICARE, SELFPAY ==
[2022-04-07 16:02] VITALS: BMI 49.8
[2025-04-16 14:25] LABS: Add Manual Diff / Slide Review NO; Hematocrit 42.4 % (41-53); Hemoglobin 14.5 g/dL (13.5-17.5); Lymphocytes Absolute Auto 2100 /uL (1100-4500); Mean Corpuscular HGB Conc 34.2 % (30-36); Mean Corpuscular Hemoglobin 32.1 PG (26-34); Mean Corpuscular Volume 93.9 fL (80-100); Platelet Count 105 X10^3/uL (150-400)
[2025-04-16 14:44] LABS: Alanine Aminotransferase 28 IU/L (<50); Albumin 4.4 g/dL (3.5-5.0); Albumin Globulin Ratio 1.5 (1.0-2.8); Alkaline Phosphatase 78 U/L (38-126); Blood Urea Nitrogen 15 mg/dL (9-20); Calcium 10.2 mg/dL (8.4-10.2); Carbon Dioxide 21 mmol/L (22-32); Chloride 105 mmol/L (98-107); Cholesterol 113 mg/dL (140-199); Estimated Glomerular Filt Rate > 60 mL/min (>60); Globulin 2.9 g/dL (1.7-4.1); Glucose 106 mg/dL (70-99); HDL Cholesterol 46 mg/dL (40-60); HEMOLYSIS < 15 (0-50); Potassium 4.7 mmol/L (3.4-5.1); Sodium 137 mmol/L (137-145); Total Protein 7.3 g/dL (6.3-8.2); Triglycerides 223 mg/dL (35-150)
[2025-04-16 15:14] LABS: TSH w/ Reflex to FT4 1.40 uIU/mL (0.47-4.68)
== END ==
PROVIDERS: PCP Family Medicine; Referring Provider Family Medicine; Visit Provider Family Medicine
DX: J44.9 Chronic obstructive pulmonary disease, unspecified (principal); G89.4 Chronic pain syndrome; Z12.5 Encounter for screening for malignant neoplasm of prostate; I48.91 Unspecified atrial fibrillation; Z98.1 Arthrodesis status; Z68.43 Body mass index [BMI] 50.0-59.9, adult
CPT/HCPCS: 36415; 80053; 80061; 82172; 84443; 85025; G0103